=== PATIENT | female | born 1930 | race Caucasian/White ===

== ENCOUNTER 2017-07-12 05:53 | Inpatient (IN) | payer OTHER ==
--- NOTE | 2017-07-12 06:02 | PDOC ---
History of Present Illness - History of Present Illness Initial Comments: 07/12/17 06:55 87yo woman with PMH of Afib (on Coumadin), CHF, pacemaker placement, HTN, HLD, hypothyroidism who presents with shortness of breath for the past week. Patient endorses orthopnea and PND. Denies chest pain, chest pressure, or tightness. No recent illness. No sick contacts or travel. Patient is on lasix, but denies any significant increase in LE edema or calf pain. Patient ambulates with walker at baseline. Reports several episodes of black stool this morning. PCP: Dr. Samm Loo Building Architect: Dr. Cannon <Sherri Schuler - Last Filed: 07/12/17 19:43> <Jonatan Howard - Last Filed: 07/17/17 19:21> - General Stated Complaint: SOB Time Seen by Provider: 07/12/17 06:01 Past History - Past Medical History Anemia: No Asthma: No Cancer: No Cardiac Disorders: Yes (A Fib., ASHD, stent) CVA: No COPD: No CHF: Yes Dementia: No Diabetes: No Dialysis: Yes (last dialysis 2 months ago) GI Disorders: No Disorders: Yes (UTI DX 06/21, NOW ON BACTRIM DS) HTN: Yes Hypercholesterolemia: Yes Liver Disease: No Seizures: No Thyroid Disease: Yes (hypothyroidism) - Surgical History Abdominal Surgery: Yes Appendectomy: Yes Cardiac Surgery: Yes (Implanted loop recorder) Cholecystectomy: Yes Lung Surgery: No Neurologic Surgery: No Orthopedic Surgery: No - Immunization History Immunization Up to Date: Yes - Suicide/Smoking/Psychosocial Hx Smoking Status: No Smoking History: Former smoker Have you smoked in the past 12 months: No Number of Cigarettes Smoked Daily: 10 If you are a former smoker, when did you quit?: OVER 50 YRS Cigars Per Day: 0 Hx Alcohol Use: No Drug/Substance Use Hx: No Substance Use Type: None Hx Substance Use Treatment: No <Sherri Schuler - Last Filed: 07/12/17 19:43> <Jonatan Howard - Last Filed: 07/17/17 19:21> - Past Medical History Allergies/Adverse Reactions: Allergies Allergy/AdvReac Type Severity Reaction Status Date / Time No Known Drug Allergies Allergy Verified 07/12/17 06:24 Home Medications: Ambulatory Orders Acetaminophen [Tylenol] 650 mg PO PRN PRN 06/21/15 Furosemide [Lasix -] 40 mg PO DAILY 06/21/15 Isosorbide Mononitrate 15 mg PO DAILY 06/21/15 Levothyroxine [Synthroid -] 100 mcg PO DAILY 06/21/15 Losartan Potassium 25 mg PO DAILY 06/21/15 Metoprolol Tartrate 50 mg PO BID 06/21/15 Warfarin Sodium [Coumadin] 3 mg PO HS 06/21/15 Gabapentin 100 mg PO BID 07/12/17 Review of Systems - Review of Systems Respiratory: Yes: See HPI Cardiac (ROS): No: Chest Pain, Palpitations, Syncope, Chest Tightness ABD/GI: Yes: Other (black stool this AM) All Other Systems: Reviewed and Negative <Sherri Schuler - Last Filed: 07/12/17 19:43> *Physical Exam - Physical Exam General Appearance: Yes: Nourished, Appropriately Dressed HEENT: positive: Normal ENT Inspection Neck: positive: Supple Respiratory/Chest: positive: Crackles (L base crackles) Cardiovascular: positive: Regular Rhythm, Regular Rate, S1, S2 Vascular Pulses: Dorsalis-Pedis (R): 2+, Doralis-Pedis (L): 2+ Gastrointestinal/Abdominal: positive: Normal Bowel Sounds, Flat, Soft. negative : Tender, Distended, Guarding Extremity: positive: Other. negative: Pedal Edema (bilateral chronic venous stasis) Neurologic: positive: Fully Oriented, Alert, Normal Mood/Affect <Sherri Schuler - Last Filed: 07/12/17 19:43> - Vital Signs Last Vital Signs Temp Pulse Resp BP Pulse Ox 97.5 F L 81 18 147/71 100 07/17/17 14:41 07/17/17 14:41 07/17/17 14:41 07/17/17 14:41 07/17/17 09:05 <Jonatan Howard - Last Filed: 07/17/17 19:21> Heart Score/ECG Review - ECG Impressions Comment:: 07/12/17 07:04 Ventricular paced, rate 80 no ischemic changes QTc 484 <Sherri Schuler - Last Filed: 07/12/17 19:43> ED Treatment Course - LABORATORY CBC & Chemistry Diagram: 07/12/17 16:22 07/12/17 16:22 <Sherri Schuler - Last Filed: 07/12/17 19:43> - LABORATORY CBC & Chemistry Diagram: 07/16/17 07:22 07/17/17 06:00 - ADDITIONAL ORDERS Additional order review: 07/12/17 07:31 RBC 3.45 L MCV 104.8 H MCHC 32.5 RDW 13.7 MPV 7.9 D Neutrophils % 72.7 Lymphocytes % 15.4 D Monocytes % 7.7 Eosinophils % 2.9 Basophils % 1.3 - Medications Given in the ED: ED Medications Discontinued Medications Generic Name Dose Route Start Last Admin Trade Name Freq PRN Reason Stop Dose Admin Acetaminophen 650 mg 07/12/17 18:43 07/12/17 18:48 Tylenol - PO 07/12/17 18:44 650 mg ONCE ONE Administration Bisacodyl 20 mg 07/16/17 13:30 07/16/17 13:55 Dulcolax - PO 07/16/17 13:31 20 mg ONCE ONE Administration Escitalopram Oxalate 10 mg 07/12/17 11:45 07/14/17 10:38 Lexapro - PO Not Given DAILY DAVINA Furosemide 40 mg 07/12/17 11:45 07/14/17 10:37 Lasix Injection - IVPUSH 40 mg DAILY DAVINA Administration Pantoprazole Sodium 80 mg/ 100 mls @ 10 mls/hr 07/12/17 13:00 07/13/17 00:00 Sodium Chloride IVPB 10 mls/hr Q10H DAVINA Administration 8 MG/HR Sodium Chloride 1,000 mls @ 75 mls/hr 07/15/17 13:45 07/15/17 14:45 Normal Saline - IV 07/15/17 16:44 75 mls/hr ASDIR DAVINA Administration Influenza Virus Vaccine Quadrival 60 mcg 07/16/17 15:00 07/16/17 15:46 Flulaval Quad [id number] IM 07/16/17 15:01 60 mcg .ONCE ONE Administration Isosorbide Mononitrate 15 mg 07/12/17 11:45 07/13/17 09:33 Imdur - PO 15 mg DAILY DAVINA Administration Isosorbide Mononitrate 30 mg 07/13/17 18:09 07/15/17 09:36 Imdur - PO 30 mg DAILY DAVINA Administration Levothyroxine Sodium 100 mcg 07/12/17 11:45 07/14/17 10:38 Synthroid - PO 100 mcg DAILY DAVINA Administration Losartan Potassium 25 mg 07/14/17 10:00 07/15/17 09:36 Cozaar - PO 25 mg DAILY DAVINA Administration Melatonin 5 mg 07/13/17 20:03 07/13/17 21:33 Melatonin PO 07/13/17 20:04 5 mg ONCE ONE Administration Melatonin 5 mg 07/14/17 21:48 07/14/17 22:22 Melatonin PO 07/14/17 21:49 5 mg ONCE ONE Administration Melatonin 5 mg 07/15/17 19:30 07/15/17 21:32 Melatonin PO 07/15/17 19:31 5 mg ONCE ONE Administration Metoprolol Tartrate 50 mg 07/12/17 11:45 07/15/17 09:36 Lopressor - PO 50 mg BID DAVINA Administration Metoprolol Tartrate 25 mg 07/15/17 13:40 07/17/17 10:22 Lopressor - PO 25 mg BID DAVINA Administration Ondansetron HCl 4 mg 07/12/17 07:09 07/12/17 07:36 Zofran Odt - SL 07/12/17 07:10 4 mg ONCE ONE Administration Phytonadione 2.5 mg 07/12/17 12:53 07/12/17 19:22 Mephyton - PO 07/12/17 12:54 Not Given ONCE ONE Phytonadione 5 mg 07/14/17 10:45 07/14/17 11:59 Mephyton - PO 07/14/17 10:46 5 mg ONCE ONE Administration Polyethylene Glycol/Electrolytes 4,000 ml 07/16/17 18:00 07/16/17 17:11 Golytely Solution - PO 07/16/17 18:01 4,000 ml ONCE ONE Administration Potassium Chloride 40 meq 07/17/17 18:14 07/17/17 18:27 Potassium Chloride Oral Liquid PO 07/17/17 18:15 Not Given ONCE ONE Potassium Chloride 40 meq 07/17/17 18:30 07/17/17 18:45 K-Dur - PO 07/17/17 18:31 40 meq ONCE ONE Administration Sodium Bicarbonate 650 mg 07/12/17 14:00 07/14/17 14:03 Sodium Bicarbonate - PO Not Given TID [facility] Warfarin Sodium 5 mg 07/16/17 18:00 07/17/17 17:53 Coumadin - PO 5 mg DAILY@1800 [facility] Administration <Jonatan Howard - Last Filed: 07/17/17 19:21> Medical Decision Making - Medical Decision Making 07/12/17 07:05 87yo woman with PMH of Afib (on Coumadin), CHF, and biventricular pacemaker who presents with sob likely 2/2 CHF exacerbation. Also reports melena in setting of Warfarin concerning for GIB. -CBC, CMP, Trop, BNP -CXR -EKG -Guaiac 07/12/17 19:46 Case signed out in-coming resident <Sherri Schuler - Last Filed: 07/12/17 19:43> *DC/Admit/Observation/Transfer <Sherri Schuler - Last Filed: 07/12/17 19:43> <Jonatan Howard - Last Filed: 07/17/17 19:21> Diagnosis at time of Disposition: Shortness of breath, Blood in stool
--- NOTE | 2017-07-12 06:20 | PDOC ---
Attending Attestation - HPI HPI: 07/12/17 06:47 The patient is a 87 year old female with a significant past medical history of Afib (pacemaker, reportedly taking warfarin), ASHD, cardiac stent, CHF, HTN, HLD , hypothyroidism, sensory ataxia, vertigo, who presents to the ED for two weeks of shortness of breath. She reports the shortness of breath is worse when lying flat. She denies recent illnesses or sick contacts. She denies alleviation of her symptoms. Secondarily, she reports one episode of dark stool this morning. The patient denies fever, chills, diaphoresis, chest pain, palpitations, lightheadedness. The patient denies any trauma, dizziness, LOC, headache, syncope. The patient denies hematuria, frequency, or dysuria. The patient denies abdominal pain or vomiting The patient denies lower extremity edema PCP: Dr. Cannon (appointment tomorrow) - Medical Decision Making 07/12/17 06:47 Documentation prepared by Chelsea Villalpando, acting as medical numerical control operator for Jonatan Howard DO <Chelsea Villalpando - Last Filed: 07/12/17 06:48> - Resident Resident Name: Sherri Schuler - ED Attending Attestation I have performed the following: I have examined & evaluated the patient, The case was reviewed & discussed with the resident, I agree w/resident's findings & plan, Exceptions are as noted - Physicial Exam PE: 07/12/17 19:42 *Physical Exam General Appearance: Yes: Appropriately Dressed. No: Apparent Distress, Intoxicated HEENT: positive: EOMI, AMANDA, Normal ENT Inspection, Normal Voice, TMs Normal, Pharynx Normal. negative: Pale Conjunctivae, Photophobia, Scleral Icterus (R), Scleral Icterus (L) Neck: positive: Trachea midline, Normal Thyroid, Supple. negative: Tender, Rigid, Carotid bruit, Stridor, Lymphadenopathy (R), Lymphadenopathy (L), Thyromegaly Respiratory/Chest: positive: Lungs Clear, Normal Breath Sounds. negative: Chest Tender, Respiratory Distress, Accessory Muscle Use, Labored Respiration, RES, Crackles, Rales, Rhonchi, Stridor, Wheezing, Dullness Cardiovascular: positive: Regular Rhythm, Regular Rate, S1, S2. negative: Edema , JVD, Murmur, Bradycardia, Tachycardia Vascular Pulses: Dorsalis-Pedis (R): 2+, Doralis-Pedis (L): 2+ Gastrointestinal/Abdominal: positive: Normal Bowel Sounds, Flat, Soft. negative : Tender, Organomegaly, Pulsatile Mass, Increased Bowel Sounds, Decreased BS, Distended, Guarding, Rebound, Hernia, Hepatomegaly, Spleenomegaly Lymphatic: negative: Adenopathy, Tenderness Musculoskeletal: positive: Normal Inspection. negative: CVA Tenderness, Decreased Range of Motion Extremity: positive: Normal Capillary Refill, Normal Inspection, Normal Range of Motion, Pelvis Stable. negative: Tender, Pedal Edema, Swelling, Erythema Integumentary: positive: Normal Color, Dry, Warm. negative: Cyanotic, Erythema , Jaundice, Rash Neurologic: positive: wood and hardware outfitter II-XII NML intact, Fully Oriented, Alert, Normal Mood/ Affect, Motor Strength 5/5. negative: EOM Palsy, Facial Droop, Sensory Deficit <Jonatan Howard - Last Filed: 07/12/17 19:42>
[2017-07-12] MEDS ORDERED: ONDANSETRON *ODT* 4 MG TABLET SL ONE (07:09)
[2017-07-12] MEDS ORDERED: ONDANSETRON *ODT* 4 MG TABLET ONE (07:27)
--- NOTE | 2017-07-12 07:31 | PDOC ---
*Physical Exam - Vital Signs Last Vital Signs Temp Pulse Resp BP Pulse Ox 97.9 F 82 20 165/90 99 07/12/17 06:25 07/12/17 06:25 07/12/17 06:25 07/12/17 06:25 07/12/17 06:25 ED Treatment Course - LABORATORY CBC & Chemistry Diagram: 07/12/17 07:31 07/12/17 07:31 Medical Decision Making - Medical Decision Making 07/12/17 07:31 Care taken over from Dr. Schuler. 07/12/17 07:32 Ms. Guzman is an 87 yo woman w/ pmh of afib (on coumadin) with pacemaker, CHF, HTN, HLD, hypothyroidism presenting w/ SOB for 1 week and also complaining of 1 episode of black stool this AM. She currently sees Dr. Cannon for Cardiology. Home meds as of 2 years ago (last known list). Acetaminophen [Tylenol] 650 mg PO PRN 06/21/15 Escitalopram Oxalate [Lexapro -] 10 mg PO DAILY 06/21/15 Furosemide [Lasix -] 40 mg PO ASDIR 06/21/15 Isosorbide Mononitrate 15 mg PO DAILY 06/21/15 Levothyroxine [Synthroid -] 100 mcg PO DAILY 06/21/15 Losartan Potassium 25 mg PO DAILY 06/21/15 Metoprolol Tartrate 50 mg PO BID 06/21/15 Sodium Bicarbonate 650 mg PO TID 06/21/15 Sulfamethoxazole/Trimethoprim [Bactrim Ds -] 1 tab PO BID #28 tablet 06/21/15 Warfarin Sodium [Coumadin] 3 mg PO HS 06/21/15 Zolpidem Tartrate [Ambien] 5 mg PO HS 06/21/15 07/12/17 09:03 Discussed patient with PCP, would like admitted to hospitalist as unsure of date of last cardiac workup and given blood in stool w/ SOB symptoms. 07/12/17 09:36 INR noted to be 6.02. 07/12/17 09:48 Discussed patient with Warehouse Shipping Receiving Clerk (Dr. Cannon) - agrees with admit and will see patient in hospital later today. 07/12/17 10:32 Patient will be admitted under hospitalist. *DC/Admit/Observation/Transfer Diagnosis at time of Disposition: Shortness of breath, Blood in stool - Discharge Dispostion Admit: Yes - Referrals Referrals: Adriana Johnson MD [Primary Care Provider] - - Patient Instructions - Post Discharge Activity
[2017-07-12 07:43] LABS: BASO % 1.3 % (0-2.0); EOS % 2.9 % (0-4.5); HEMATOCRIT 36.1 % (32.4-45.2); HEMOGLOBIN 11.7 GM/dL (10.7-15.3); LYMPH % 15.4 % (8-40); MCH 34.1 pg (25.7-33.7); MCHC 32.5 g/dl (32.0-36.0); MEAN CELL VOLUME 104.8 fl (80-96); MEAN PLT VOLUME 7.9 fl (7.5-11.1); MONO % 7.7 % (3.8-10.2); NEUT % 72.7 % (42.8-82.8); PLATELET COUNT 196 K/MM3 (134-434); RBC 3.45 M/mm3 (3.60-5.2); RDW 13.7 % (11.6-15.6); WHITE BLOOD COUNT 7.9 K/mm3 (4.0-10.0)
[2017-07-12 08:14] LABS: ALBUMIN 3.5 g/dl (3.4-5.0); ANION GAP 10 (8-16); BILIRUBIN,TOTAL 0.7 mg/dL (0.2-1.0); BLOOD UREA NITROGEN 73 mg/dL (7-18); CALCIUM 8.1 mg/dL (8.5-10.1); CHLORIDE 111 mmol/L (98-107); CO2 21 mmol/L (21-32); CREATININE 2.1 mg/dL (0.55-1.02); GLUCOSE,RANDOM 96 mg/dL (74-106); SGPT/ALT 19 U/L (12-78); SODIUM 142 mmol/L (136-145); TOT PROT 6.5 g/dl (6.4-8.2)
[2017-07-12 08:16] LABS: ALK PHOS 87 U/L (45-117)
[2017-07-12 08:22] LABS: POTASSIUM 5.2 mmol/L (3.5-5.1); SGOT/AST 30 U/L (15-37)
[2017-07-12 09:32] LABS: INR 6.02 (0.82-1.09)
--- NOTE | 2017-07-12 11:27 | HP ---
CC: Can't breathe PCP: Dr. Johnson; Cardiology: Dr. Jang or Dr. Ramirez HPI: 87 yo F w/ persistent A-fib on coumadin, hypothyroidism, angina and CAD s/ p PCI and stent, combined CHF s/p biventricular pacemaker (last interrogated 2 weeks ago), HLD, HTN, asthma, ESRD previously on HD brought in by her son due to worsening shortness of breath since last night. The symptom came on last night when patient was in bed around 8pm when she suddenly felt short of breath. She lives on second floor with ~12 steps of stairs and she uses wheelchair and walker to ambulate outside and inside of her house respectively. Patient endorses dyspnea on exertion at baseline but the symptom has been more acute and worse in that she now has to use 2 instead of 1 pillow to sleep at night and wake up gasping for air more frequently in the last few days. She also noted worsening appetite and 3 episodes of dark stool while on her usual coumadin 3mg Mon-Fri, 1.5mg on Sat, and nothing on Sun. She denies chest pain, palpitation, fever, chills, n/v, weight gain, urinary symptom. PMH: As above PSH: Appendectomy, AV Fistula/Graft, Cholecystectomy, Hysterectomy, Stent, Tonsillectomy Social History: Lives with her son. Former smoker, denies alcohol and drug use Family History: non-contributory Allergy: NKDA Home Meds: Acetaminophen [Tylenol] 650 mg PO PRN 06/21/15 Escitalopram Oxalate [Lexapro -] 10 mg PO DAILY 06/21/15 Furosemide [Lasix -] 40 mg PO DAILY 06/21/15 Isosorbide Mononitrate 15 mg PO DAILY 06/21/15 Levothyroxine [Synthroid -] 100 mcg PO DAILY 06/21/15 Losartan Potassium 25 mg PO DAILY 06/21/15 Metoprolol Tartrate 50 mg PO BID 06/21/15 Sodium Bicarbonate 650 mg PO TID 06/21/15 Warfarin Sodium [Coumadin] 3 mg PO HS 06/21/15 ROS: Constitutional: no fever or chills, +loss of appetite, no weakness or weight change HEENT: No headache, nasal congestion, sore throat, ear pain, vision change Skin: shingle rash on R posterior back Cardiovascular: No chest pain, palpitation Pulmonary: No cough (dry or productive), colored sputum Endocrine: No polyuria, polydipsia, skin /hair changes, heat/cold intolerance. GI: No active abd pain, nausea or vomiting : No frequency, urgency, dysuria, or hematuria. MSK: No joint or muscle pain Psychology: No depression, anxiety, or insomnia. Physical Examination Vital Signs Period Temp Pulse Resp BP Sys/Maciel Pulse Ox Last 24 Hr 97.9 F 82 20 165/90 99 General: Patient sitting up in bed, on NC 2L, in no obvious discomfort or distress, AAO x 3. hard at hearing, able to speak full sentences, appropriate to stated age. Eyes: PERRLA ENT: Oropharynx clear with no lesions/erythema. Neck: Supple with no LAD or masses, +JVD. Lymph Nodes: No cervical or inguinal LAD. Cardiovascular: Irregularly irregular, S1 and S2 normal, no m/g/r. Lungs: Good air entry, crackles in bilateral bases Abdomen: Normoactive bowel sounds. Non-distended, No tenderness even upon deep palpation, no guarding/rebound, +hepatojugular reflux Extremeties: No peripheral edema, chronic venous stasis change, scatter small bruises in lower extremities, +2 peripheral pulses Rectal: normal sphincter tone, no tenderness, mass, hard stool felt, no visible blood Imaging: EKG on 07/12: ventricular paced, biventricular pacemaker, 80 bpm CXR on 07/12: no acute finding A/P: 87 yo F admitted to telemetry inpatient service for supratherapeutic INR on coumadin and suspected acute decompensation of combined heart failure. UGIB, in the setting of Supratherapeutic INR - +ve occult blood but stable H&H * f/u repeat CBC - IV access and start protonix gtt - Hold off Vitamin K for now - Hold coumadin and trend INR - GI consult Acute decompensation of combined CHF - Clinically fluid overloaded and elevated BNP - Lasix IV 40mg daily - Daily weight and strict I/O - Bed elevated 30-45 - Supplemental O2 to maintain >92% - Repeat ECHO - Cardiology onboard HTN - Cont. isosorbide mononitrate, metoprolol - Hold losartan considering hyperkalemia and potentially worsening Cr on lasix Hyperkalemia, mild - Cont. to monitor K+, f/u serial BMP - Hold losartan, resume tomorrow ESRD - Cr at baseline, not on HD - Cont. to monitor Cr while on daily lasix Hypothyroidism - f/u TSH - Cont. synthroid Anxiety disorder - Cont. lexapro FEN - Avoid fluid - Mild hyperkalemia, cont. to monitor - Na+ restrict diet Prophylaxis - DVT: SCDs - GI: not indicated Dispo - Cont. to monitor on telemetry - Anticipate 2-3 d of hospitalization, discharge to home Ace [facility] Medicine PGY2 Pager: [phone] Visit type - Emergency Visit Emergency Visit: Yes ED Registration Date: 07/12/17 Care time: The patient presented to the Emergency Department on the above date and was hospitalized for further evaluation of their emergent condition. - New Patient This patient is new to me today: Yes Date on this admission: 07/12/17 - Critical Care Critical Care patient: No
[2017-07-12 11:35] LABS: N-TERMINAL BNP 32030.34 pg/ml (5-450)
[2017-07-12] MEDS ORDERED: LOSARTAN POTASSIUM 25 MG TABLET PO SCH (11:45)
[2017-07-12] MEDS ORDERED: LEVOTHYROXINE NA 25 MCG TABLET (FP) ONE (12:03)
[2017-07-12] MEDS: METOPROLOL TARTRATE 50 MG TABLET (FP) PO SCH ×2 (12:07→22:50)
[2017-07-12] MEDS: LEVOTHYROXINE NA 100 MCG TABLET (FP) PO SCH (12:07)
[2017-07-12] MEDS: ESCITALOPRAM OXALATE 10 MG TABLET (FP) PO SCH (12:07)
[2017-07-12] MEDS: FUROSEMIDE 40 MG/4 ML INJECTABLE VIAL IVPUSH SCH (12:14)
[2017-07-12] MEDS ORDERED: PHYTONADIONE 5 MG TABLET PO ONE (12:53)
[2017-07-12] MEDS: ISOSORBIDE MONONITRATE 30 MG TAB.SR.24H (FP) PO SCH (12:59)
--- NOTE | 2017-07-12 13:05 | PN ---
Teaching Attending Note Name of Resident: Ace Samuel ATTENDING PHYSICIAN STATEMENT I saw and evaluated the patient. I reviewed the resident's note and discussed the case with the resident. I agree with the resident's findings and plan as documented. SUBJECTIVE: CC: SOB and melena HPI: 87 y/o lady with h/o CHF, HTN, CAD, PCI, s/p Pacemaker , A fib, DM, hypothyroidism, CKD on HD previously and ther medical problems who presented with SOB and melena. she has not been giancarlo to sleep at night x 2 weeks, but in past 2 days she developed orthopnea , but no OSB at rest. She denies CP or papitations , or fever/chills, cough. she walks using a walker at home . She takes coumadin at home and yesterday she had 3 lack BMs . she denies any h/o GI bleed. her pacemaker was interrogated 2 weeks ago, and she was supposed to see Binh estrada in office today . OBJECTIVE: NAD, awake , alert and oriented x3. tachypnic HEENT: JVD, MMM, no facia droop, EOMI, round equla reactive pupils. CV: RRR, 3/6/ SM at LLSB and apex . JVD Lungs: bibasiar crackles , no wheezing Abd: soft, Nt, ND , NL BS Ext: 1+ edema , chronic hyperpugmentation of skin on egs . DP 2+ b/l Neuro : no facia droop, EOMI, round equla reactive pupils. tongue at mid line . strenght 4/5 shoulder abduction b/l. 5/5 in bicpes and triceps . 5/5 in LE proximally and distally. Rectal: Nl hair distribution , no internal or external hemorrhoids. black stool on examiner 's finger , guaiac + ASSESSMENT AND PLAN: 87 y/o lady with h/o CHF, HTN, CAD, PCI, s/p Pacemaker , A fib, DM, hypothyroidism, CKD on HD previously and ther medical problems who presented with SOB and melena. 1- Acute on chronic Systolic heart failure . signs of volume overload. takes lasix QOd instead of daily. last echo in 2014 with severely reduced EF. - lasix IV 40 mg daily - weight and I&O - check echo - tele monitoring - cont BB, and imdur . hold ARB due to her hyperkalemia -card consult 2- Melena: likely due to Upper GI bleed in setting of coumadin coagulopathy. - start protonix gtt - repeat H&H now and q 8 hr - Hold coumadin. if Hb drops on repeat labs , will reverse with Vit K 2.5 - GI consult 3- H/O A fib: has paced rhythm on EKG today - cont BB - hold coumadin as above , and reverse if Hb drops 4-Mild hyperkalemia: - No EKG changes. - hold ARB, might resume tomorrow if K nl and BP tolerates. - repeat K 5- HTN: did not receive any of her meds yet. - will prescribe. - monitor of ARB as above 6- Swallow eval. as she choked on her pills . HLOC
[2017-07-12] MEDS: PANTOPRAZOLE SODIUM 80 MG in SODIUM CHLORIDE 100 ML IVPB SCH (15:14)
[2017-07-12] MEDS: SODIUM BICARBONATE 650 MG TABLET PO SCH ×2 (15:24→22:50)
--- NOTE | 2017-07-12 16:39 | CON.GI ---
Consult Consult Specialty:: GI - History of Present Illness History of Present Illness: A 87 yof admitted via ED for CHF exacerbation and supratheraputic INR. Hemoccult positive. No melena, hematochezia, hematermesis. Some nausea, but no vomiting. No abdominal pain, dysphagia, odynophagaia, GERD. Pt's daughter at bedside. - Past Medical History Cardio/Vascular: Yes: AFIB, CAD (PCI), HTN, Hyperlipdemia, Other (Post REVEAL, implatable loop recorder) Pulmonary: Yes: Asthma Renal/: Yes: Renal Failure (ESRD on HD) ...LMP: 09/10/14 Psych: Yes: Anxiety Endocrine: Yes: Hypothyroidism - Past Surgical History Past Surgical History: Yes: Appendectomy, AV Fistula/Graft (done 4-5 yrs ago, now ligated and off HD), Cholecystectomy, Hysterectomy, Stent, Tonsillectomy - Alcohol/Substance Use Hx Alcohol Use: No - Smoking History Smoking history: Former smoker Have you smoked in the past 12 months: No Aproximately how many cigarettes per day: 10 If you are a former smoker, when did you quit?: OVER 50 YRS - Social History Usual Living Arrangement: With Child ADL: Independent History of Recent Travel: No Home Medications - Allergies Allergies/Adverse Reactions: Allergies Allergy/AdvReac Type Severity Reaction Status Date / Time No Known Drug Allergies Allergy Verified 07/12/17 06:24 - Home Medications Home Medications: Ambulatory Orders Acetaminophen [Tylenol] 650 mg PO PRN 06/21/15 Escitalopram Oxalate [Lexapro -] 10 mg PO DAILY 06/21/15 Furosemide [Lasix -] 40 mg PO DAILY 06/21/15 Isosorbide Mononitrate 15 mg PO DAILY 06/21/15 Levothyroxine [Synthroid -] 100 mcg PO DAILY 06/21/15 Losartan Potassium 25 mg PO DAILY 06/21/15 Metoprolol Tartrate 50 mg PO BID 06/21/15 Sodium Bicarbonate 650 mg PO TID 06/21/15 Warfarin Sodium [Coumadin] 5 mg PO HS 06/21/15 Gabapentin 100 mg PO BID 07/12/17 Family Disease History - Family Disease History Family History: Unremarkable (on-contributing) Review of Systems Findings/Remarks: please refer to H&P and ED records Physical Exam-GI Vital Signs: Vital Signs Temperature 97.9 F 07/12/17 06:25 Pulse Rate 77 07/12/17 14:37 Respiratory Rate 20 07/12/17 14:37 Blood Pressure 153/76 07/12/17 14:37 O2 Sat by Pulse Oximetry (%) 100 07/12/17 14:37 Constitutional: Yes: No Distress, Calm Eyes: Yes: Conjunctiva Clear HENT: Yes: Atraumatic Neck: Yes: Supple Cardiovascular: Yes: Regular Rate and Rhythm Respiratory: Yes: Regular Labs: CBC, BMP 07/12/17 07:31 07/12/17 07:31 INR, PTT INR 6.02 (0.82-1.09) H* D 07/12/17 08:12 Laboratory Results - last 24 hr 07/12/17 07/12/17 07/12/17 07:20 07:31 07:31 WBC 7.9 RBC 3.45 L Hgb 11.7 Hct 36.1 MCV 104.8 H MCH 34.1 H MCHC 32.5 RDW 13.7 Plt Count 196 MPV 7.9 D Neutrophils % 72.7 Lymphocytes % 15.4 D Monocytes % 7.7 Eosinophils % 2.9 Basophils % 1.3 PT with INR INR PTT (Actin FS) Sodium 142 Potassium 5.2 H Chloride 111 H D Carbon Dioxide 21 D Anion Gap 10 BUN 73 H Creatinine 2.1 H Creat Clearance w eGFR 22.18 Random Glucose 96 Calcium 8.1 L Total Bilirubin 0.7 AST 30 D ALT 19 Alkaline Phosphatase 87 D Creatine Kinase 85 Troponin I 0.05 B-Natriuretic Peptide 03783.34 H Total Protein 6.5 Albumin 3.5 Stool Occult Blood Positive 07/12/17 07/12/17 07:31 08:12 WBC RBC Hgb Hct MCV MCH MCHC RDW Plt Count MPV Neutrophils % Lymphocytes % Monocytes % Eosinophils % Basophils % PT with INR 68.00 H INR 6.02 H* D PTT (Actin FS) 60.0 H Sodium Potassium Chloride Carbon Dioxide Anion Gap BUN Creatinine Creat Clearance w eGFR Random Glucose Calcium Total Bilirubin AST ALT Alkaline Phosphatase Creatine Kinase Troponin I B-Natriuretic Peptide Cancelled Total Protein Albumin Stool Occult Blood Problem List - Problems (1) CHF (congestive heart failure) Code(s): I50.9 - HEART FAILURE, UNSPECIFIED Qualifiers: Congestive heart failure type: combined Congestive heart failure chronicity : acute on chronic Qualified Code(s): I50.43 - Acute on chronic combined systolic (congestive) and diastolic (congestive) heart failure (2) Heme positive stool Code(s): R19.5 - OTHER FECAL ABNORMALITIES (3) Supratherapeutic INR Code(s): R79.1 - ABNORMAL COAGULATION PROFILE Assessment/Plan An 87 yof with supratheraputic INR and normal Hgb. No external signs of recent, or ongoing significant GI bleeding. Hemocult positive stools. Correct INR CHF exacerbation management Consider PPI po daily repeat Hgb in AM No need for urgent GI intervention at this time. Discussed with the patient and her daughter Will follow and monitor
[2017-07-12 17:02] LABS: HEMATOCRIT 35.2 % (32.4-45.2); HEMOGLOBIN 11.7 GM/dL (10.7-15.3); MCH 35.1 pg (25.7-33.7); MCHC 33.2 g/dl (32.0-36.0); MEAN CELL VOLUME 105.8 fl (80-96); MEAN PLT VOLUME 8.4 fl (7.5-11.1); PLATELET COUNT 204 K/MM3 (134-434); RBC 3.33 M/mm3 (3.60-5.2); RDW 13.7 % (11.6-15.6); WHITE BLOOD COUNT 8.6 K/mm3 (4.0-10.0)
[2017-07-12 17:13] LABS: ADD RBC MORPHOLOGY YES
[2017-07-12 17:57] LABS: ANION GAP 9 (8-16); BLOOD UREA NITROGEN 80 mg/dL (7-18); CALCIUM 8.5 mg/dL (8.5-10.1); CHLORIDE 108 mmol/L (98-107); CO2 24 mmol/L (21-32); CREATININE 2.2 mg/dL (0.55-1.02); GLUCOSE,RANDOM 100 mg/dL (74-106); POTASSIUM 4.7 mmol/L (3.5-5.1); SODIUM 141 mmol/L (136-145)
[2017-07-12] MEDS ORDERED: ACETAMINOPHEN 325 MG TABLET (FP) PO ONE (18:43)
[2017-07-12] MEDS ORDERED: ACETAMINOPHEN 325 MG TABLET (FP) ONE (18:46)
[2017-07-12 19:16] LABS: MACROCYTOSIS 2+
[2017-07-12 22:15] LABS: HEMOGLOBIN 10.9 GM/dL (10.7-15.3); MCH 34.9 pg (25.7-33.7); MEAN CELL VOLUME 105.7 fl (80-96); MEAN PLT VOLUME 8.6 fl (7.5-11.1); PLATELET COUNT 209 K/MM3 (134-434); RBC 3.12 M/mm3 (3.60-5.2); RDW 13.7 % (11.6-15.6); WHITE BLOOD COUNT 7.5 K/mm3 (4.0-10.0)
[2017-07-12 23:28] VITALS: BMI 22.6
[2017-07-13] MEDS: PANTOPRAZOLE SODIUM 80 MG in SODIUM CHLORIDE 100 ML IVPB SCH
[2017-07-13] MEDS: SODIUM BICARBONATE 650 MG TABLET PO SCH ×3 (06:38→21:08)
[2017-07-13 08:15] LABS: HEMATOCRIT 34.8 % (32.4-45.2); HEMOGLOBIN 11.2 GM/dL (10.7-15.3); MCH 34.2 pg (25.7-33.7); MCHC 32.1 g/dl (32.0-36.0); MEAN CELL VOLUME 106.6 fl (80-96); MEAN PLT VOLUME 8.4 fl (7.5-11.1); PLATELET COUNT 205 K/MM3 (134-434); RBC 3.27 M/mm3 (3.60-5.2); RDW 13.7 % (11.6-15.6); WHITE BLOOD COUNT 7.1 K/mm3 (4.0-10.0)
[2017-07-13 08:23] LABS: PROTHROMBIN TIME (PATIENT) 89.1 SEC (9.98-11.88)
[2017-07-13 08:30] LABS: INR 7.88 (0.82-1.09)
[2017-07-13 08:34] LABS: ANION GAP 12 (8-16); BLOOD UREA NITROGEN 86 mg/dL (7-18); CALCIUM 8.6 mg/dL (8.5-10.1); CHLORIDE 110 mmol/L (98-107); CO2 22 mmol/L (21-32); CREATININE 2.3 mg/dL (0.55-1.02); GLUCOSE,RANDOM 65 mg/dL (74-106); MAGNESIUM 2.2 mg/dL (1.8-2.4); PHOSPHOROUS 5.4 mg/dL (2.5-4.9); POTASSIUM 4.7 mmol/L (3.5-5.1); SODIUM 144 mmol/L (136-145)
--- NOTE | 2017-07-13 08:39 | PN ---
Physical Exam: SUBJECTIVE: Patient seen and examined by me this AM - No major overnight events, vitals stable overnight. On PPI gtt. Pt denies any pain, slept well. No further episodes of SOB. Denies any fevers/chills, cough, CP, abdominal pain, N/V, rashes. Has had no bowel movements since admission. OBJECTIVE: Vital Signs Intake & Output 07/10/17 07/11/17 07/12/17 07/13/17 23:59 23:59 23:59 23:59 Intake Total 90 100 Balance 90 100 Weight 50.984 kg Period Temp Pulse Resp BP Sys/Maciel Pulse Ox Last 24 Hr 97.3 F-98.0 F 72-81 18-20 113-153/59-76 96-100 GENERAL: Pt a&ox3, laying in bed. Chinese speaking HEAD: NCAT EYES: PERRL, extraocular movements intact, sclera anicteric, conjunctiva clear. No ptosis. ENT: Ears normal, nares patent, oropharynx clear without exudates, moist mucous membranes. NECK: + JVD, trachea midline, full range of motion, supple. LUNGS: Decreased breath sounds at bases, no wheezes, no crackles, no accessory muscle use. HEART: RRR, 2/6 systolic murmur at RUSB, S2, rub or gallop. ABDOMEN: Soft, nontender, nondistended, normoactive bowel sounds, no guarding, no rebound, no hepatosplenomegaly, no masses. Upper EXTREMITIES: 2+ pulses, warm, well-perfused. BL ecchymoses. 1+ edema BL. 2 sub-cm healed necrotic ulcers in L forearm. Lower EXTREMITIES: L leg in external case, midline TKR scar. 2+ DP/PT pulses, wwp, 1+ pitting edema BL. NEUROLOGICAL: Cranial nerves II through XII grossly intact. Decreased strength in L shoulder elevation. 5/5 strength in all extremities grossly. Preserved sensation to light touch in all extremities. Normal speech, gait not observed. PSYCH: Normal mood, normal affect. Laboratory Results - last 24 hr CBC, BMP 07/13/17 06:30 07/13/17 06:30 07/13/17 06:30 07/12/17 07/12/17 07/12/17 07:31 07:31 08:12 WBC RBC Hgb Hct MCV MCH MCHC RDW Plt Count MPV Manual Slide Review Platelet Comment Macrocytosis PT with INR 68.00 H INR 6.02 H* D PTT (Actin FS) 60.0 H Sodium 142 Potassium 5.2 H Chloride 111 H D Carbon Dioxide 21 D Anion Gap 10 BUN 73 H Creatinine 2.1 H Creat Clearance w eGFR 22.18 Random Glucose 96 Calcium 8.1 L Total Bilirubin 0.7 AST 30 D ALT 19 Alkaline Phosphatase 87 D Creatine Kinase 85 Troponin I 0.05 B-Natriuretic Peptide 44677.34 H Cancelled Total Protein 6.5 Albumin 3.5 07/12/17 07/12/17 07/12/17 16:22 16:22 21:30 WBC 8.6 RBC 3.33 L Hgb 11.7 Hct 35.2 MCV 105.8 H MCH 35.1 H MCHC 33.2 RDW 13.7 Plt Count 204 MPV 8.4 Manual Slide Review Slide scanned. Platelet Comment Adequate, few giant Macrocytosis 2+ PT with INR INR PTT (Actin FS) Sodium 141 Potassium 4.7 4.7 Chloride 108 H Carbon Dioxide 24 Anion Gap 9 BUN 80 H Creatinine 2.2 H Creat Clearance w eGFR Random Glucose 100 Calcium 8.5 Total Bilirubin AST ALT Alkaline Phosphatase Creatine Kinase Troponin I 0.06 H B-Natriuretic Peptide Total Protein Albumin 07/12/17 07/12/17 07/13/17 21:30 21:45 03:50 WBC 7.5 RBC 3.12 L Hgb 10.9 Hct 33.0 MCV 105.7 H MCH 34.9 H MCHC 33.0 RDW 13.7 Plt Count 209 MPV 8.6 Manual Slide Review Platelet Comment Macrocytosis PT with INR INR PTT (Actin FS) Sodium Potassium Chloride Carbon Dioxide Anion Gap BUN Creatinine Creat Clearance w eGFR Random Glucose Calcium Total Bilirubin AST ALT Alkaline Phosphatase Creatine Kinase Troponin I 0.07 H 0.06 H B-Natriuretic Peptide Total Protein Albumin 07/13/17 07/13/17 06:30 06:30 WBC 7.1 RBC 3.27 L Hgb 11.2 Hct 34.8 MCV 106.6 H MCH 34.2 H MCHC 32.1 RDW 13.7 Plt Count 205 MPV 8.4 Manual Slide Review Platelet Comment Macrocytosis PT with INR 89.10 H INR 7.88 H* D PTT (Actin FS) Sodium Potassium Chloride Carbon Dioxide Anion Gap BUN Creatinine Creat Clearance w eGFR Random Glucose Calcium Total Bilirubin AST ALT Alkaline Phosphatase Creatine Kinase Troponin I B-Natriuretic Peptide Total Protein Albumin Active Medications Generic Name Dose Route Start Last Admin Trade Name Alecia PRN Reason Stop Dose Admin Escitalopram Oxalate 10 mg 07/12/17 11:45 07/12/17 12:07 Lexapro - PO 10 mg DAILY DAVINA Administration Furosemide 40 mg 07/12/17 11:45 07/12/17 12:14 Lasix Injection - IVPUSH 40 mg DAILY DAVINA Administration Isosorbide Mononitrate 15 mg 07/12/17 11:45 07/12/17 12:59 Imdur - PO Not Given DAILY DAVINA Levothyroxine Sodium 100 mcg 07/12/17 11:45 07/12/17 12:07 Synthroid - PO 100 mcg DAILY DAVINA Administration Metoprolol Tartrate 50 mg 07/12/17 11:45 07/12/17 22:50 Lopressor - PO 50 mg BID DAVINA Administration Pantoprazole Sodium 40 mg 07/13/17 10:00 Protonix - PO BID DAVINA Sodium Bicarbonate 650 mg 07/12/17 14:00 07/13/17 06:38 Sodium Bicarbonate - PO Not Given TID DAVINA CXR: 07/12 - No evidence of pneumonia, atelectasis, CHF. No pleural effusion, or pneumothorax is seen. ECHO 07/12 - Moderate hypokinesis of LV. PPM in R atrium and ventricle. Mild MR. Moderate TR. RV pressures 50-60. Mild . mildAR. EF 39% ASSESSMENT/PLAN: 87 yo woman w/ pmh of Afib (on coumadin), CHF, hypothyroidism, ESRD and CAD (PCI , prior stenting) who presented with SOB of 1 day duration, now found with acute on chronic CHF and GI bleedm in setting of supratherapeutic INR (6.02). #Acute on chronic CHF - Echo w/ moderate hypokinesis of LV. PPM - Cardiology consulted. Recs appreciated - Lasix 40mg IV qd - Strict Is and Os, daily weights - Imdur 30mg PO - Lopressor 50mg po BID - Tele monitoring - Losartan starting tomorrow #Suspect UGI bleed/melena - Hgb stable 11.7 -> 11.2, no evidence of active bleeding currently - Trend H/H - PPI gtt dc/ed. Protonix 40mg PO BID - Monitor for melena, hematochezia - GI consulted. Recs appreciated. - Per GI, medical management, monitor for signs of bleeding, trend Hgb #Afib - Rate well controlled during admission - Rate control w/ BB - Continue to hold coumadin as INR supratherapeutic - Repeat INR 6.02 -> 7.88. F/u AM INR - If INR continues uptrending or signs of shilo bleeding, FFP + Vitamin K #Hyperkalemia - K 4.7 today. - Daily BMPs. Trend K. #Hypothyroidism - TSH 0.69 - Continue home synthroid #HTN - 110-160s systolic during stay - Restart Losartan tomorrow - Monitor BP #Depression - Continue home Lexapro 10mg PO FEN: F: PO hydration E: Daily BMPs, monitor K N: Cardiac diet #PPX INR supratherapeutic, coumadin once normalized INR PPI Plan discussed with attending, Dr. Isaiah Victoria, PGY1 Visit type - Emergency Visit Emergency Visit: Yes ED Registration Date: 07/12/17 Care time: The patient presented to the Emergency Department on the above date and was hospitalized for further evaluation of their emergent condition. - New Patient This patient is new to me today: Yes Date on this admission: 07/13/17 - Critical Care Critical Care patient: No
--- NOTE | 2017-07-13 09:17 | EKG ---
Test Reason : Blood Pressure : / mmHG Vent. Rate : 080 BPM Atrial Rate : 076 BPM P-R Int : 000 ms QRS Dur : 130 ms QT Int : 420 ms P-R-T Axes : 000 257 042 degrees QTc Int : 484 ms Ventricular-paced rhythm Biventricular pacemaker detected underlying rhythm is atrial fibrillation Confirmed by STEPHEN HARRISON MD ([id number]) on 07/13/2017 9:16:51 AM Referred By: Confirmed By:STEPHEN HARRISON MD
[2017-07-13] MEDS: ISOSORBIDE MONONITRATE 30 MG TAB.SR.24H (FP) PO SCH (09:33)
[2017-07-13] MEDS: PANTOPRAZOLE 40 MG TABLET (FP) PO SCH ×2 (09:34→21:07)
[2017-07-13] MEDS: LEVOTHYROXINE NA 100 MCG TABLET (FP) PO SCH (09:34)
[2017-07-13] MEDS: FUROSEMIDE 40 MG/4 ML INJECTABLE VIAL IVPUSH SCH (09:34)
[2017-07-13] MEDS: METOPROLOL TARTRATE 50 MG TABLET (FP) PO SCH ×2 (09:34→21:07)
[2017-07-13] MEDS: ESCITALOPRAM OXALATE 10 MG TABLET (FP) PO SCH (09:34)
--- NOTE | 2017-07-13 09:46 | PN ---
Progress Note, Physician History of Present Illness: No events overnight. comfortable. INR 7.8, Hb 11.2 g/dl - Current Medication List Current Medications: Active Medications Escitalopram Oxalate (Lexapro -) 10 mg PO DAILY [facility] Last Admin: 07/13/17 09:34 Dose: Not Given Furosemide (Lasix Injection -) 40 mg IVPUSH DAILY [facility] Last Admin: 07/13/17 09:34 Dose: 40 mg Isosorbide Mononitrate (Imdur -) 15 mg PO DAILY [facility] Last Admin: 07/13/17 09:33 Dose: 15 mg Levothyroxine Sodium (Synthroid -) 100 mcg PO DAILY [facility] Last Admin: 07/13/17 09:34 Dose: 100 mcg Metoprolol Tartrate (Lopressor -) 50 mg PO BID [facility] Last Admin: 07/13/17 09:34 Dose: 50 mg Pantoprazole Sodium (Protonix -) 40 mg PO BID [facility] Last Admin: 07/13/17 09:34 Dose: 40 mg Sodium Bicarbonate (Sodium Bicarbonate -) 650 mg PO TID [facility] Last Admin: 07/13/17 06:38 Dose: Not Given - Objective Vital Signs: Vital Signs Temperature 97.3 F L 07/13/17 08:00 Pulse Rate 79 07/13/17 08:00 Respiratory Rate 18 07/13/17 08:00 Blood Pressure 158/71 07/13/17 08:00 O2 Sat by Pulse Oximetry (%) 98 07/13/17 08:00 Constitutional: Yes: Well Nourished, No Distress, Calm Eyes: Yes: Conjunctiva Clear HENT: Yes: Atraumatic Neck: Yes: Supple Respiratory: Yes: Regular Gastrointestinal: Yes: Soft. No: Rectal Bleeding, Tenderness, Vomiting Neurological: Yes: Alert, Oriented Psychiatric: Yes: Alert Labs: CBC, BMP 07/13/17 06:30 07/13/17 06:30 INR, PTT INR 7.88 (0.82-1.09) H* D 07/13/17 06:30 Laboratory Results - last 24 hr 07/12/17 07/12/17 07/12/17 07:31 08:12 16:22 WBC RBC Hgb Hct MCV MCH MCHC RDW Plt Count MPV Manual Slide Review Platelet Comment Macrocytosis PT with INR INR PTT (Actin FS) 60.0 H Sodium 141 Potassium 4.7 Chloride 108 H Carbon Dioxide 24 Anion Gap 9 BUN 80 H Creatinine 2.2 H Random Glucose 100 Calcium 8.5 Phosphorus Magnesium Troponin I 0.06 H B-Natriuretic Peptide 13862.34 H TSH 07/12/17 07/12/17 07/12/17 16:22 21:30 21:30 WBC 8.6 RBC 3.33 L Hgb 11.7 Hct 35.2 MCV 105.8 H MCH 35.1 H MCHC 33.2 RDW 13.7 Plt Count 204 MPV 8.4 Manual Slide Review Slide scanned. Platelet Comment Adequate, few giant Macrocytosis 2+ PT with INR INR PTT (Actin FS) Sodium Potassium 4.7 Chloride Carbon Dioxide Anion Gap BUN Creatinine Random Glucose Calcium Phosphorus Magnesium Troponin I 0.07 H B-Natriuretic Peptide TSH 07/12/17 07/13/17 07/13/17 21:45 03:50 06:30 WBC 7.5 7.1 RBC 3.12 L 3.27 L Hgb 10.9 11.2 Hct 33.0 34.8 MCV 105.7 H 106.6 H MCH 34.9 H 34.2 H MCHC 33.0 32.1 RDW 13.7 13.7 Plt Count 209 205 MPV 8.6 8.4 Manual Slide Review Platelet Comment Macrocytosis PT with INR INR PTT (Actin FS) Sodium Potassium Chloride Carbon Dioxide Anion Gap BUN Creatinine Random Glucose Calcium Phosphorus Magnesium Troponin I 0.06 H B-Natriuretic Peptide TSH 07/13/17 07/13/17 06:30 06:30 WBC RBC Hgb Hct MCV MCH MCHC RDW Plt Count MPV Manual Slide Review Platelet Comment Macrocytosis PT with INR 89.10 H INR 7.88 H* D PTT (Actin FS) Sodium 144 Potassium 4.7 Chloride 110 H Carbon Dioxide 22 Anion Gap 12 BUN 86 H Creatinine 2.3 H Random Glucose 65 L D Calcium 8.6 Phosphorus 5.4 H D Magnesium 2.2 Troponin I B-Natriuretic Peptide TSH 0.69 Problem List - Problems (1) CHF (congestive heart failure) Code(s): I50.9 - HEART FAILURE, UNSPECIFIED Qualifiers: Congestive heart failure type: combined Congestive heart failure chronicity : acute on chronic Qualified Code(s): I50.43 - Acute on chronic combined systolic (congestive) and diastolic (congestive) heart failure (2) Heme positive stool Code(s): R19.5 - OTHER FECAL ABNORMALITIES (3) Supratherapeutic INR Code(s): R79.1 - ABNORMAL COAGULATION PROFILE Assessment/Plan An 87 yof with supratheraputic INR and normal Hgb. No external signs of recent, or ongoing significant GI bleeding. Correct INR CHF exacerbation - clinically better monitor for signs of bleeding PPI Low salt diet No need for urgent GI intervention at this time. Discussed with the patient and her son in law Will follow and monitor
--- NOTE | 2017-07-13 10:56 | CON.CARD ---
Consult Consult Specialty:: Cardiology - History of Present Illness Chief Complaint: Shortness of breath. 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 S/P AV galen ablation, ICD/DOCUMENT CONTROL COORDINATOR. Admitted with progressive shortness of breath and diagnosed to have CHF. Denies having chest pain or discomfort. No history of palpitations, lightheadedness, dizziness or syncope. Denies having any recent upper respiratory tract infection. Past History: As mentioned in the HPI. History of Anxiety disorder. History of Asthma. S/p Herpes Zoster with post herpatic neuralgia. S/p left lower extremity embolization. Surgical history: S/p Appendectomy S/p Cholecystectomy S/p ICD/ DOCUMENT CONTROL COORDINATOR insertion. S/p AV Fistula/Graft S/p Hysterectomy S/pTonsillectomy Social history: Lives with her son. Former smoker, denies alcohol and drug use. Family history: Not available. Allergies: None reported. Active Medications Generic Name Dose Route Start Last Admin Trade Name Freq PRN Reason Stop Dose Admin Escitalopram Oxalate 10 mg 07/12/17 11:45 07/13/17 09:34 Lexapro - PO Not Given DAILY DAVINA Furosemide 40 mg 07/12/17 11:45 07/13/17 09:34 Lasix Injection - IVPUSH 40 mg DAILY DAVINA Administration Isosorbide Mononitrate 15 mg 07/12/17 11:45 07/13/17 09:33 Imdur - PO 15 mg DAILY DAVINA Administration Levothyroxine Sodium 100 mcg 07/12/17 11:45 07/13/17 09:34 Synthroid - PO 100 mcg DAILY DAVINA Administration Metoprolol Tartrate 50 mg 07/12/17 11:45 07/13/17 09:34 Lopressor - PO 50 mg BID DAVINA Administration Pantoprazole Sodium 40 mg 07/13/17 10:00 07/13/17 09:34 Protonix - PO 40 mg BID DAVINA Administration Sodium Bicarbonate 650 mg 07/12/17 14:00 07/13/17 06:38 Sodium Bicarbonate - PO Not Given TID DAVINA Review of Systems: Constitutional: No history of chills, fever or night sweats. No history of unintentional weight loss. HEENT: No history of headaches, diplopia, blurred vision. No history of epistaxis or hoarseness. No tinnitus. Cardiovascular: See history of present illness. Respiratory: See history of present illness. Intermittent nonproductive cough. No expectoration or hemoptysis. No history of tuberculosis. GI: No history of nausea, vomiting, melena, or hematemesis. No history of abdominal pain or discomfort, no change in bowel habits reported. See history of present illness. CEMENT PATCHER: No history of seizures, or syncope. No history of focal weakness. Endocrine: No history of polyuria or polydipsia. No history of intolerance to cold or warm weather. Musculoskeletal: No arthralgias or history of myalgia. : No history of frequency or hematuria. HEME: No history of bleeding, anemia or ecchymosis. O: 87 year old female in no acute distress, no pallor, cyanosis, clubbing, or jaundice. Last Vital Signs Temp Pulse Resp BP Pulse Ox 97.3 F L 79 18 158/71 98 07/13/17 08:00 07/13/17 08:00 07/13/17 08:00 07/13/17 08:00 07/13/17 08:00 Intake & Output 07/10/17 07/11/17 07/12/17 07/13/17 23:59 23:59 23:59 23:59 Intake Total 90 100 Balance 90 100 Weight 112 lb 6.4 oz Neck: Supple, no JVD, negative HJR, carotids were equal and upstrokes were normal, no bruits appreciated. No thyromegaly. Heart: PMI was in the 5th intercostal space, no heaves or thrills, S1 and S2 were normal. Ejection systolic murmur Grade II/ at the second right ICS and along the left sternal border. Decrescendo systolic murmur II/ at the apex. No diastolic murmur or gallops were appreciated. Lungs: Clear on auscultation bilaterally. Abdomen: Soft, nontender, no hepatosplenomegaly appreciated, and no palpable masses were felt. Extremities: No calf tenderness or dependent edema. DP and PT pulses could not be palpated. ECG: Probable Atrial fibrillation. Permanent pacemaker functioning in a fixed rate mode with consistent ventricular capture. Laboratory Results - last 24 hr 07/12/17 07/12/17 07/12/17 07:31 08:12 16:22 WBC RBC Hgb Hct MCV MCH MCHC RDW Plt Count MPV Manual Slide Review Platelet Comment Macrocytosis PT with INR INR PTT (Actin FS) 60.0 H Sodium 141 Potassium 4.7 Chloride 108 H Carbon Dioxide 24 Anion Gap 9 BUN 80 H Creatinine 2.2 H Random Glucose 100 Calcium 8.5 Phosphorus Magnesium Troponin I 0.06 H B-Natriuretic Peptide 95707.34 H TSH 07/12/17 07/12/17 07/12/17 16:22 21:30 21:30 WBC 8.6 RBC 3.33 L Hgb 11.7 Hct 35.2 MCV 105.8 H MCH 35.1 H MCHC 33.2 RDW 13.7 Plt Count 204 MPV 8.4 Manual Slide Review Slide scanned. Platelet Comment Adequate, few giant Macrocytosis 2+ PT with INR INR PTT (Actin FS) Sodium Potassium 4.7 Chloride Carbon Dioxide Anion Gap BUN Creatinine Random Glucose Calcium Phosphorus Magnesium Troponin I 0.07 H B-Natriuretic Peptide TSH 07/12/17 07/13/17 07/13/17 21:45 03:50 06:30 WBC 7.5 7.1 RBC 3.12 L 3.27 L Hgb 10.9 11.2 Hct 33.0 34.8 MCV 105.7 H 106.6 H MCH 34.9 H 34.2 H MCHC 33.0 32.1 RDW 13.7 13.7 Plt Count 209 205 MPV 8.6 8.4 Manual Slide Review Platelet Comment Macrocytosis PT with INR INR PTT (Actin FS) Sodium Potassium Chloride Carbon Dioxide Anion Gap BUN Creatinine Random Glucose Calcium Phosphorus Magnesium Troponin I 0.06 H B-Natriuretic Peptide TSH 07/13/17 07/13/17 06:30 06:30 WBC RBC Hgb Hct MCV MCH MCHC RDW Plt Count MPV Manual Slide Review Platelet Comment Macrocytosis PT with INR 89.10 H INR 7.88 H* D PTT (Actin FS) Sodium 144 Potassium 4.7 Chloride 110 H Carbon Dioxide 22 Anion Gap 12 BUN 86 H Creatinine 2.3 H Random Glucose 65 L D Calcium 8.6 Phosphorus 5.4 H D Magnesium 2.2 Troponin I B-Natriuretic Peptide TSH 0.69 IMPRESSION: 1. CHF NYHA Class III 2. CAD/S/p PCI/Stenting, Angina pectoris. 3. Hypertension/ Hypertensive cardiovascular disease. 4. S/p AV Galen ablation. 5. S/p ICD/ DOCUMENT CONTROL COORDINATOR. 6. Severe left ventricular systolic dysfunction. 7. Hypothyroidism, on replacement therapy. 8. Chronic kidney disease 9. Profound deafness. 10. Elevated INR. 11. Mild troponin elevation. 12. History of anxiety disorder. RECOMMENDATION: 1. Consider increasing the dose of Imdur to 60 mg PO daily. 2. If blood pressure remains stable consider adding BAILEE or ARB under closed monitoring of renal function. 3. Curtail sodium intake. 4. Daily weights. 5. Increase ambulation. 6. Close follow up of INR. 7. Interrogation of ICD/DOCUMENT CONTROL COORDINATOR according to protocol. Prognosis: Guarded. Attestation: Documentation prepared by Radha Avelar, acting as medical center director for Clarence Cannon MD. - Past Medical History Cardio/Vascular: Yes: AFIB, CAD (PCI), HTN, Hyperlipdemia, Other (Post REVEAL, implatable loop recorder) Pulmonary: Yes: Asthma Renal/: Yes: Renal Failure (ESRD on HD) ...LMP: 09/10/14 ...: No Psych: Yes: Anxiety Endocrine: Yes: Hypothyroidism - Past Surgical History Past Surgical History: Yes: Appendectomy, AV Fistula/Graft (done 4-5 yrs ago, now ligated and off HD), Cholecystectomy, Hysterectomy, Stent, Tonsillectomy - Alcohol/Substance Use Hx Alcohol Use: No - Smoking History Smoking history: Former smoker Have you smoked in the past 12 months: No Aproximately how many cigarettes per day: 10 If you are a former smoker, when did you quit?: OVER 50 YRS - Social History Usual Living Arrangement: With Child ADL: Independent History of Recent Travel: No Home Medications - Allergies Allergies/Adverse Reactions: Allergies Allergy/AdvReac Type Severity Reaction Status Date / Time No Known Drug Allergies Allergy Verified 07/12/17 06:24 - Home Medications Home Medications: Ambulatory Orders Acetaminophen [Tylenol] 650 mg PO PRN PRN 06/21/15 Escitalopram Oxalate [Lexapro -] 10 mg PO DAILY 06/21/15 Furosemide [Lasix -] 40 mg PO DAILY 06/21/15 Isosorbide Mononitrate 15 mg PO DAILY 06/21/15 Levothyroxine [Synthroid -] 100 mcg PO DAILY 06/21/15 Losartan Potassium 25 mg PO DAILY 06/21/15 Metoprolol Tartrate 50 mg PO BID 06/21/15 Sodium Bicarbonate 650 mg PO TID 06/21/15 Warfarin Sodium [Coumadin] 3 mg PO HS 06/21/15 Gabapentin 100 mg PO BID 07/12/17 Vital Signs: Vital Signs Temperature 97.3 F L 07/13/17 08:00 Pulse Rate 79 07/13/17 08:00 Respiratory Rate 18 07/13/17 08:00 Blood Pressure 158/71 07/13/17 08:00 O2 Sat by Pulse Oximetry (%) 98 07/13/17 08:00 - Other Data Labs, Other Data: CBC, BMP 07/13/17 06:30 07/13/17 06:30 INR, PTT INR 7.88 (0.82-1.09) H* D 07/13/17 06:30 Troponin, BNP 07/12/17 07/12/17 07/12/17 07:31 16:22 21:30 Troponin I 0.06 H 0.07 H B-Natriuretic Peptide 45970.34 H 07/13/17 03:50 Troponin I 0.06 H B-Natriuretic Peptide Troponin, BNP 07/12/17 07/12/17 07/12/17 07:31 16:22 21:30 Troponin I 0.06 H 0.07 H B-Natriuretic Peptide 83440.34 H 07/13/17 03:50 Troponin I 0.06 H B-Natriuretic Peptide
--- NOTE | 2017-07-13 10:58 | CONSULT ---
Admitting History and Physical - Primary Care Physician PCP: Irvin Colon - Admission History of Present Illness: 87 yo F admitted to telemetry inpatient service for supratherapeutic INR on coumadin and suspected acute decompensation of combined heart failure. Pt reports a h/o dysphagia with sw tx at [facility] 2 years ago. Shw reports needing to eat very soft moist food and cut it up in small pieces. She drinks thin liquids carefully and feels she tolerate PO intake with these modifications. History Source: Patient Limitations to Obtaining History: No Limitations - Past Medical History Cardiovascular: Yes: AFIB, CAD (PCI), HTN, Hyperlipdemia, Other (Post REVEAL, implatable loop recorder) Pulmonary: Yes: Asthma Renal/: Yes: Renal Failure (ESRD on HD) ...LMP: 09/10/14 ...: No Psych: Yes: Anxiety Endocrine: Yes: Hypothyroidism - Past Surgical History Past Surgical History: Yes: Appendectomy, AV Fistula/Graft (done 4-5 yrs ago, now ligated and off HD), Cholecystectomy, Hysterectomy, Stent, Tonsillectomy - Smoking History Smoking history: Former smoker Have you smoked in the past 12 months: No Aproximately how many cigarettes per day: 10 If you are a former smoker, when did you quit?: OVER 50 YRS - Alcohol/Substance Use Hx Alcohol Use: No - Social History ADL: Independent History of Recent Travel: No History - Admission Reason For Visit: DYSPNEA,BLOOD IN STOOL,INCREASED INR - Diagnostics X-ray: Report Reviewed - General Mental Status: Alert and Oriented, Awake and Alert, Able to Follow Commands Attention: Intact Ability to Follow Directions: Excellent Head/Neck Control: WFL - Hearing Hearing: Impaired Hearing Aide: Yes With Patient: No Speech Evaluation - Communication Primary Language: LATVIAN Communication: Yes: Within Normal Limits Oral Expression Ability: Yes: No Impairment - Speech Production Able to Make Needs Known: Yes: WNL Intelligibility: Yes: WNL - Speech Characteristics Voice Loudness: Normal Voice Pitch: Yes: Normal Voice Phonatory-based Quality: Yes: Normal Speech Pattern: Normal Nasal Resonance: Normal Articulation: Yes: Precise - Swallow Evaluation/Bedside Assessment Current Nutritional Intake: Regular, Thin Liquids Oral Secretions: Yes: WFL Dentition: Yes: Adequate, Dental Appliance Upper, Dental Appliance Lower Facial Symmetry at Rest: Symmetrical Facial Symmetry on Retraction: Symmetrical Facial Movement: Controlled Sensation: Normal Against Resistance Opening: Normal Against Resistance Closing: Normal Pucker Lips: Normal Smile: Normal Lingual Movement: Normal, Symmetric Lingual Speed of Movement: Normal Lingual Movement Strgth Against Opposition: Normal Lingual Movement Characteristics: Normal Velopharyngeal Movement: Normal Laryngeal Movement: Able to Palpate Rate of Intake: WFL Bolus Size: Small Labial Seal: WFL Chewing: WFL Oral Prep Time: WFL A-P Transit: WFL Pocketing: None Timing of Swallow: Delayed Coughing/Throat Clear: No Change in Voice: No Recommendations - Speech Evaluation, Impression/Plan Impression: Bedside swallowing evaluation unremarkable with exception of mildly delayed swallow onset. Pt was admitted for SOB. I reviewed the case with Cardiology and he feels she has CHF, but that aspiration may also be present. As we discussed, we can monitor her and always perform an MBS as an out pt,if neccessary. - Dysphagia Impressions/Plan Dysphagia Impressions: Ongoing Evaluation *Silent aspiration: cannot be R/O at bedside Dysphagia Treatment Plan: Small Bites, Chin Tuck/Down, Safe Rate, 1/2 tsp. at a time, OOB for meals, OOB for 1 h. after meals Recommendations: Modified Barium Swallow (if symptoms of aspiration reported or observed, fever,congestion,infiltrates) - Recommendations Diet Consistency: Regular (soft, moist, cohesive) Liquids: Thin Liquids
--- NOTE | 2017-07-13 15:21 | MSN ---
Progress Note (SOAP) - Subjective Chief Complaint: SOB, Melena History of Present Illness: Patient examined this morning, awake laying supine with the head of the bed elevated. No acute events overnight as per nursing. She says she slept well and has been feeling much better since her admission. She admits most of her SOB has resolved. Denies any fevers, chills, chest pain, palpitatoins SOB, nausea or vomiting. - Current Medications Current Medications: Active Medications Escitalopram Oxalate (Lexapro -) 10 mg PO DAILY [facility] Last Admin: 07/13/17 09:34 Dose: Not Given Furosemide (Lasix Injection -) 40 mg IVPUSH DAILY [facility] Last Admin: 07/13/17 09:34 Dose: 40 mg Isosorbide Mononitrate (Imdur -) 15 mg PO DAILY [facility] Last Admin: 07/13/17 09:33 Dose: 15 mg Levothyroxine Sodium (Synthroid -) 100 mcg PO DAILY [facility] Last Admin: 07/13/17 09:34 Dose: 100 mcg Metoprolol Tartrate (Lopressor -) 50 mg PO BID [facility] Last Admin: 07/13/17 09:34 Dose: 50 mg Pantoprazole Sodium (Protonix -) 40 mg PO BID [facility] Last Admin: 07/13/17 09:34 Dose: 40 mg Sodium Bicarbonate (Sodium Bicarbonate -) 650 mg PO TID [facility] Last Admin: 07/13/17 13:35 Dose: Not Given - Objective Vital Signs: Vital Signs Temperature 98.4 F 07/13/17 15:15 Pulse Rate 80 07/13/17 15:15 Respiratory Rate 18 07/13/17 15:15 Blood Pressure 103/44 07/13/17 15:15 O2 Sat by Pulse Oximetry (%) 98 07/13/17 08:00 Constitutional: Yes: No Distress, Calm Eyes: Yes: EOM Intact, PERRL, Other (Moist occular membranes) Neck: Yes: Supple Cardiovascular: Yes: Regular Rate and Rhythm, S1, S2. No: JVD, Gallop, Murmur, Rub, Other (No Hepatojugular Reflux) Respiratory: Yes: On Nasal O2 (2L via nasal canula), SOB (Mild; Improved since yesterday), Wheezes (at the Lung bases B/L). No: Poor Air Entry Gastrointestinal: Yes: Normal Bowel Sounds, Soft. No: Ascites, Distention, Tenderness, Tenderness, Rebound, Vomiting Peripheral Pulses: Left Radial: 2+, Right Radial: 2+ Edema: LLE: Trace, RLE: Trace Integumentary: Yes: Other (Right Chest wall tender to plapation [patient says from shingles]) Neurological: Yes: Alert, Oriented, Cran Nerves II-XII Intact. No: Loss of Sensation (Sensation intact B/L C5-T1 and L4-S1), Numbness, Paresthesia, Tingling, Weakness ...Motor Strength: Yes: LUE, RUE (5/5 with Shoulder abduction, elbow flexion and extension) Labs Lab Results: Laboratory Results - last 24 hr 07/12/17 07/12/17 07/12/17 16:22 16:22 21:30 WBC 8.6 RBC 3.33 L Hgb 11.7 Hct 35.2 MCV 105.8 H MCH 35.1 H MCHC 33.2 RDW 13.7 Plt Count 204 MPV 8.4 Manual Slide Review Slide scanned. Platelet Comment Adequate, few giant Macrocytosis 2+ PT with INR INR Sodium 141 Potassium 4.7 4.7 Chloride 108 H Carbon Dioxide 24 Anion Gap 9 BUN 80 H Creatinine 2.2 H Random Glucose 100 Calcium 8.5 Phosphorus Magnesium Troponin I 0.06 H TSH 07/12/17 07/12/17 07/13/17 21:30 21:45 03:50 WBC 7.5 RBC 3.12 L Hgb 10.9 Hct 33.0 MCV 105.7 H MCH 34.9 H MCHC 33.0 RDW 13.7 Plt Count 209 MPV 8.6 Manual Slide Review Platelet Comment Macrocytosis PT with INR INR Sodium Potassium Chloride Carbon Dioxide Anion Gap BUN Creatinine Random Glucose Calcium Phosphorus Magnesium Troponin I 0.07 H 0.06 H TSH 07/13/17 07/13/17 07/13/17 06:30 06:30 06:30 WBC 7.1 RBC 3.27 L Hgb 11.2 Hct 34.8 MCV 106.6 H MCH 34.2 H MCHC 32.1 RDW 13.7 Plt Count 205 MPV 8.4 Manual Slide Review Platelet Comment Macrocytosis PT with INR 89.10 H INR 7.88 H* D Sodium 144 Potassium 4.7 Chloride 110 H Carbon Dioxide 22 Anion Gap 12 BUN 86 H Creatinine 2.3 H Random Glucose 65 L D Calcium 8.6 Phosphorus 5.4 H D Magnesium 2.2 Troponin I TSH 0.69 Imaging - Results Chest X-ray: Report Reviewed (On 07/12: No evidence of pneumonia, atelectasis, CHF. No Pleural effusion or pneumonia.) Other: Other (Echo on 07/12: Moderate Hypokinesis of LV. PPM in R Atrium and ventricle. Mild MR. Moderate TR. Rv pressures 50-60. Mild . Mild AR. EF 39%) Problem List - Problems (1) CHF (congestive heart failure) Code(s): I50.9 - HEART FAILURE, UNSPECIFIED Qualifiers: Congestive heart failure type: systolic Congestive heart failure chronicity : acute on chronic Qualified Code(s): I50.23 - Acute on chronic systolic ( congestive) heart failure Assessment/Plan 87 y/o female w/ PMHXx of AFib (On Comadin at home), CHF s/p Biventricular Pacemaker, HTN, HLD, Hypothyroidism, CKD and Angina and CAD s/p PCI and Stent placement was admitted yesterday to telemetry inpatient service due to Acute on Chronic Systolic Heart failure and Upper GI Bleed. 1. Acute of Chronic Systolic Heart Failure - SOB has improved with 2L on NC and bed head height elevated 30-45 degrees - Lower extremity Edema has improved, only Trace amount remains - Continue Lasix 40mg IV BID - Continue Metoprolol Tartrate 50 mg PO BID - Continue Isosorbide Mononitrate 15 mg PO Daily - Daily Weights, Strict I&O's - Tele monitoring - Echo on 07/12: LV Systolic function moderately reduced. Moderate Hypokinesis of LV. PPM in R Atrium and ventricle. Mild MR. Moderate TR. Rv pressures 50-60. Mild . Mild AR. EF 39% 2. Melana likely due to Upper GI Bleed in the setting of Coumadin use - Hold Coumadin 5mg; INR on 07/12 was 6.02, Repeat INR on 07/13 was 7.88. H&H since admission has remained stable. Will consider reversal with Vitamin K if INR continues to trend upward. Continue to monitor INR - Continue Protonix gtt - GI Consult: Appreciate Recommendations 3. History of Atrial Fibrillation - EKG on 07/12 showed paced rhythm - Continue Metoprolol Tartrate 50 mg PO BID - Hold Coumadin 5mg 4. HTN - BP since admission has ranged from 103-165/44-90 - Continue Metoprolol Tartrate 50 mg PO BID - Continue Isosorbide Mononitrate 15 mg PO Daily - Can Start her home dose of Losartan potassium 25 mg PO Daily if K+ levels remain within normal range and are not elevated 5. Hyperkalemia - Repeat K+ today was 4.7 - Continue to monitor 6. DVT PPx - Supratherapeutic INR; Hold Coumadin 5mg - SCDs
--- NOTE | 2017-07-13 18:17 | PN ---
Teaching Attending Note Name of Resident: Akin Victoria ATTENDING PHYSICIAN STATEMENT I saw and evaluated the patient. I reviewed the resident's note and discussed the case with the resident. I agree with the resident's findings and plan as documented. SUBJECTIVE: No fever or hcills, SOB has much improved . NO Cp OBJECTIVE: NAD, awake , alert and oriented x3. tachypnic CV: RRR, 3/6/ SM at LLSB and apex . JVD Lungs: minimal bibasiar crackles , no wheezing Abd: soft, Nt, ND , NL BS Ext: 1+ edema , chronic hyperpugmentation of skin on egs . DP 2+ b/l ASSESSMENT AND PLAN: 87 y/o lady with h/o CHF, HTN, CAD, PCI, s/p Pacemaker , A fib, DM, hypothyroidism, CKD on HD previously and ther medical problems who presented with SOB and melena. 1- Acute on chronic Systolic heart failure . echo reviewed. - cont lasix IV 40 mg daily - weight and I&O - Tele monitoring , no events on tele - cont BB, increase imdur . - resume losartan since hyperkalemia has resolved 2- Melena: likely due to Upper GI bleed in setting of coumadin coagulopathy. - PO protonix - follow H&H - INR has increased, but pt has no signs of continued bled. will not reverse INR yet 3- H/O A fib: - cont BB - hold coumadin as above , and reverse if any further signs of bleed or if INR cont to increase 4-Mild hyperkalemia: resolved 5- HTN: resume ARB cont BB and increase IMdur HLOC
[2017-07-13] MEDS ORDERED: MELATONIN 5 MG TABLETS PO ONE (20:03)
[2017-07-14] MEDS: SODIUM BICARBONATE 650 MG TABLET PO SCH ×2 (05:08→14:03)
[2017-07-14 08:41] LABS: HEMATOCRIT 34.3 % (32.4-45.2); HEMOGLOBIN 11.3 GM/dL (10.7-15.3); MCH 34.4 pg (25.7-33.7); MEAN CELL VOLUME 104.4 fl (80-96); PLATELET COUNT 217 K/MM3 (134-434); RBC 3.29 M/mm3 (3.60-5.2); RDW 13.4 % (11.6-15.6); WHITE BLOOD COUNT 7.4 K/mm3 (4.0-10.0)
[2017-07-14 09:01] LABS: ALBUMIN 3.5 g/dl (3.4-5.0); BLOOD UREA NITROGEN 78 mg/dL (7-18); CALCIUM 8.3 mg/dL (8.5-10.1); CHLORIDE 105 mmol/L (98-107); SODIUM 142 mmol/L (136-145)
[2017-07-14 09:07] LABS: ALK PHOS 88 U/L (45-117); ANION GAP 10 (8-16); CO2 27 mmol/L (21-32); CREATININE 2.6 mg/dL (0.55-1.02); GLUCOSE,RANDOM 97 mg/dL (74-106); SGOT/AST 21 U/L (15-37); SGPT/ALT 17 U/L (12-78); TOT PROT 6.3 g/dl (6.4-8.2)
[2017-07-14 09:11] LABS: PROTHROMBIN TIME (PATIENT) 118.6 SEC (9.98-11.88)
[2017-07-14 09:20] LABS: INR 10.5 (0.82-1.09)
[2017-07-14] MEDS: ISOSORBIDE MONONITRATE 30 MG TAB.SR.24H (FP) PO SCH (10:37)
[2017-07-14] MEDS: METOPROLOL TARTRATE 50 MG TABLET (FP) PO SCH ×2 (10:37→21:43)
[2017-07-14] MEDS: FUROSEMIDE 40 MG/4 ML INJECTABLE VIAL IVPUSH SCH (10:37)
[2017-07-14] MEDS: LOSARTAN POTASSIUM 25 MG TABLET PO SCH (10:37)
[2017-07-14] MEDS: PANTOPRAZOLE 40 MG TABLET (FP) PO SCH ×2 (10:38→21:48)
[2017-07-14] MEDS: LEVOTHYROXINE NA 100 MCG TABLET (FP) PO SCH (10:38)
[2017-07-14] MEDS: ESCITALOPRAM OXALATE 10 MG TABLET (FP) PO SCH (10:38)
--- NOTE | 2017-07-14 10:39 | PN ---
Progress Note, Physician History of Present Illness: Dr. Collins covering Dr. Cannon Feels improved, less dyspnea Urinating to lasix No overt bleeding Tele: V-paced at 80s - Current Medication List Current Medications: Active Medications Escitalopram Oxalate (Lexapro -) 10 mg PO DAILY [facility] Last Admin: 07/13/17 09:34 Dose: Not Given Furosemide (Lasix Injection -) 40 mg IVPUSH DAILY [facility] Last Admin: 07/13/17 09:34 Dose: 40 mg Isosorbide Mononitrate (Imdur -) 30 mg PO DAILY [facility] Levothyroxine Sodium (Synthroid -) 100 mcg PO DAILY [facility] Last Admin: 07/13/17 09:34 Dose: 100 mcg Losartan Potassium (Cozaar -) 25 mg PO DAILY [facility] Metoprolol Tartrate (Lopressor -) 50 mg PO BID [facility] Last Admin: 07/13/17 21:07 Dose: 50 mg Pantoprazole Sodium (Protonix -) 40 mg PO BID [facility] Last Admin: 07/13/17 21:07 Dose: 40 mg Phytonadione (Mephyton -) 5 mg PO ONCE ONE Stop: 07/14/17 10:46 Sodium Bicarbonate (Sodium Bicarbonate -) 650 mg PO TID [facility] Last Admin: 07/14/17 05:08 Dose: Not Given - Objective Vital Signs: Vital Signs Temperature 97.5 F L 07/14/17 10:00 Pulse Rate 80 07/14/17 10:00 Respiratory Rate 20 07/14/17 10:00 Blood Pressure 129/66 07/14/17 10:00 O2 Sat by Pulse Oximetry (%) 97 07/13/17 21:00 Constitutional: Yes: No Distress, Calm Eyes: Yes: WNL HENT: Yes: WNL Neck: Yes: WNL Cardiovascular: Yes: Regular Rate and Rhythm, Murmur Respiratory: Yes: Regular, CTA Bilaterally Gastrointestinal: Yes: Normal Bowel Sounds Musculoskeletal: Yes: WNL Extremities: Yes: WNL Edema: No Labs: CBC, BMP 07/14/17 07:30 07/14/17 07:30 INR, PTT INR 10.50 (0.82-1.09) H* 07/14/17 07:30 Assessment/Plan 87 year old white female with history of CAD s/p PCI/Stenting, Permanent atrial fibrillation, left ventricular systolic dysfunction, Hypertension, HVCD, Hypothyroidism, 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 S/P AV surinder ablation, ICD/INSPECTOR PUBLICATIONS. Admitted with progressive shortness of breath and diagnosed to have CHF with supratherapeutic NR 1) HFrEF -Echo showing moderately reduced LVEF and moderate PH (RVSP 50-6-mmHg) -Subjectively improved with lasix 40mg daily and appears euvolemic on exam this AM -Would hold IV Lasix given interval rise in Cr to 2.6 -Otherwise continue current regimen with Metoprolol and ARB (Losartan) and long acting nitrate -Follow BUN/Cr and volume status off diuretic 2) Supratherapeutic INR -On Coumadin for persistent Afib stroke prevention -INR increased to 10 today -No evidence of spontaneous bleeding at this time. -Would recommend Vit K administration (5mg PO)
[2017-07-14] MEDS ORDERED: PHYTONADIONE 5 MG TABLET PO ONE (10:45)
--- NOTE | 2017-07-14 11:54 | PN ---
Teaching Attending Note Name of Resident: Mary Jo Bhakta ATTENDING PHYSICIAN STATEMENT I saw and evaluated the patient. I reviewed the resident's note and discussed the case with the resident. I agree with the resident's findings and plan as documented. SUBJECTIVE: SOB is better . has no CP or SOB . denied any BM or bleeding OBJECTIVE: NAD, awake , alert and oriented x3. CV: RRR, 3/6/ SM at LLSB and apex . JVD Lungs: minimal bibasiar crackles , no wheezing Abd: soft, Nt, ND , NL BS Ext: 1+ edema , chronic hyperpugmentation of skin on egs . DP 2+ b/l ASSESSMENT AND PLAN: 87 y/o lady with h/o CHF, HTN, CAD, PCI, s/p Pacemaker , A fib, DM, hypothyroidism, CKD on HD previously and ther medical problems who presented with SOB and melena. 1- Acute on chronic Systolic heart failure . - cont lasix IV 40 mg today . Cr has increased, might switch to PO lasix in am - weight and I&O - Tele monitoring , no events on tele - cont BB, imdur 30 today, and if tolerated can increase . - Cont losartan, if Cr cont to increase will probably hold again 2- Melena: likely due to Upper GI bleed in setting of coumadin coagulopathy. stopped, stable HB - PO protonix - follow H&H - give Vit K 3- H/O A fib: - cont BB - hold coumadin as above . give Vit K x1 4-Mild hyperkalemia: resolved 5- HTN: resume ARB cont BB and IMdur HLOC
--- NOTE | 2017-07-14 12:30 | PN ---
Physical Exam: SUBJECTIVE: Patient seen and examined by me at bedside. No overnight events noted. Cardiac monitoring was only significant for PVC >10 minutes. Otherwise , patient reports feeling much better and slept throughout the night. Patient denies fever, chills, nausea, vomiting, shortness of breath, chest pain, palpitations, abdominal pain, diarrhea, constipation. OBJECTIVE: Vital Signs Period Temp Pulse Resp BP Sys/Maciel Pulse Ox Last 24 Hr 97.1 F-98.4 F 78-81 18-20 103-130/44-70 97-99 GENERAL: The patient is awake, alert, and fully oriented, in no acute distress. HEAD: Normal with no signs of trauma. EYES: 2mm pupils bilaterally, PERRL, extraocular movements intact, sclera anicteric, conjunctiva clear. ENT: Oropharynx clear without exudates, moist mucous membranes. Dentures in place NECK: 3-4 cm JVD bilaterally LUNGS: Decreased breath sounds throughout with crackles bilaterally. No accessory muscle use HEART: 2/6 systolic murmur at the RUSB with no rubs or gallops. Pacemaker on the LUSB ABDOMEN: Soft, nontender, nondistended, normoactive bowel sounds, no guarding, no rebound. EXTREMITIES: 1+ pitting edema bilaterally with bilateral chronic venous changes. 2+ dp bilaterally NEUROLOGICAL: Cranial nerves II through XII grossly intact. Normal speech. Motor strength 5/5 bilaterally with sensory intact PSYCH: Normal mood, normal affect. SKIN: Warm, dry, normal turgor, no rashes or lesions noted Laboratory Results - last 24 hr 07/14/17 07/14/17 07/14/17 07:30 07:30 07:30 WBC 7.4 RBC 3.29 L Hgb 11.3 Hct 34.3 MCV 104.4 H MCH 34.4 H MCHC 33.0 RDW 13.4 Plt Count 217 MPV 8.0 PT with INR 118.60 H INR 10.50 H* Sodium 142 Potassium 4.0 Chloride 105 Carbon Dioxide 27 D Anion Gap 10 BUN 78 H Creatinine 2.6 H Creat Clearance w eGFR 17.33 Random Glucose 97 D Calcium 8.3 L Total Bilirubin 1.0 D AST 21 D ALT 17 Alkaline Phosphatase 88 Total Protein 6.3 L Albumin 3.5 Active Medications Generic Name Dose Route Start Last Admin Trade Name Freq PRN Reason Stop Dose Admin Escitalopram Oxalate 10 mg 07/12/17 11:45 07/14/17 10:38 Lexapro - PO Not Given DAILY DAVINA Furosemide 40 mg 07/12/17 11:45 07/14/17 10:37 Lasix Injection - IVPUSH 40 mg DAILY DAVINA Administration Isosorbide Mononitrate 30 mg 07/13/17 18:09 07/14/17 10:37 Imdur - PO 30 mg DAILY DAVINA Administration Levothyroxine Sodium 100 mcg 07/12/17 11:45 07/14/17 10:38 Synthroid - PO 100 mcg DAILY DAVINA Administration Losartan Potassium 25 mg 07/14/17 10:00 07/14/17 10:37 Cozaar - PO 25 mg DAILY DAVINA Administration Metoprolol Tartrate 50 mg 07/12/17 11:45 07/14/17 10:37 Lopressor - PO 50 mg BID DAVINA Administration Pantoprazole Sodium 40 mg 07/13/17 10:00 07/14/17 10:38 Protonix - PO 40 mg BID DAVINA Administration Sodium Bicarbonate 650 mg 07/12/17 14:00 07/14/17 05:08 Sodium Bicarbonate - PO Not Given TID DAVINA CXR: 07/12 - No evidence of pneumonia, atelectasis, CHF. No pleural effusion, or pneumothorax is seen. ECHO 07/12 - Moderate hypokinesis of LV. PPM in R atrium and ventricle. Mild MR. Moderate TR. RV pressures 50-60. Mild . mildAR. EF 39% ASSESSMENT/PLAN: Patient is an 87 year old Female with a PMHx of Persistent Afib (on coumadin), Systolic CHF, hypothyroidism, ESRD and CAD (PCI, prior stenting) who presented with SOB of 1 day duration, now found with acute on chronic CHF and GI bleeding in setting of supratherapeutic INR (6.02). Melena Secondary to Supratherapeutic INR -Level >10 today. -Vitamin K 5mg PO ordered -Will continue to hold Coumadin -No report of melena since admission -Continue Protonix 40mg BID -Continue to trend CBC and INR Acute on Chronic Systolic CHF -Continue Lasix 40mg IVP daily -Strict I&O's with daily weights -Imdur 30mg PO, will increase Imdur to 60 if BP tolerates -Continue Lopressor 50mg PO BID -Continue caridac monitoring -Continue Losartan 25mg daily Persistent Atrial Fibrillation -Continue with Lopressor 50mg BID -Will continue to hold Coumadin due to supratherapeutic INR -Continue Tele monitoring Hypertension-Controlled -Continue Lopressor 50mg BID -Continue LOsartan 25mg daily -Continu to monitor BP Hypothyroidism-Controlled -TSH 1.55 -Continue Synthroid 100mcg in the morning CKD Stage IV -Continue Sodium bicarb 650mg TID -Continue to trend BMP Depression -Continue Lexapro 10mg daily F/E/N -On no fluids -Electrolytes wnl -Sodium controlled diet Prophylaxis -High Risk. No AC due to supratherapeutic INR. -No GI required Disposition -Full code -Continues to have supratherapeutic INR. Will need to continue to monitor for at least another day Visit type - Emergency Visit Emergency Visit: Yes ED Registration Date: 07/12/17 Care time: The patient presented to the Emergency Department on the above date and was hospitalized for further evaluation of their emergent condition. - New Patient This patient is new to me today: Yes Date on this admission: 07/14/17 - Critical Care Critical Care patient: No
[2017-07-14] MEDS ORDERED: MELATONIN 5 MG TABLETS PO ONE (21:48)
[2017-07-15] MEDS: ACETAMINOPHEN 325 MG TABLET (FP) PO PRN ×2 (00:34→21:32)
[2017-07-15] MEDS: LEVOTHYROXINE NA 100 MCG TABLET (FP) PO SCH (06:07)
[2017-07-15 08:10] LABS: HEMATOCRIT 33.2 % (32.4-45.2); HEMOGLOBIN 10.8 GM/dL (10.7-15.3); MCH 34.3 pg (25.7-33.7); MCHC 32.6 g/dl (32.0-36.0); MEAN CELL VOLUME 105.2 fl (80-96); PLATELET COUNT 210 K/MM3 (134-434); RBC 3.16 M/mm3 (3.60-5.2); RDW 13.6 % (11.6-15.6); WHITE BLOOD COUNT 6.9 K/mm3 (4.0-10.0)
[2017-07-15 08:29] LABS: INR 3.35 (0.82-1.09); PROTHROMBIN TIME (PATIENT) 37.8 SEC (9.98-11.88)
[2017-07-15 08:30] LABS: ANION GAP 8 (8-16); BLOOD UREA NITROGEN 73 mg/dL (7-18); CALCIUM 8.4 mg/dL (8.5-10.1); CHLORIDE 104 mmol/L (98-107); CO2 29 mmol/L (21-32); CREATININE 3.1 mg/dL (0.55-1.02); GLUCOSE,RANDOM 93 mg/dL (74-106); POTASSIUM 3.6 mmol/L (3.5-5.1); SODIUM 141 mmol/L (136-145)
--- NOTE | 2017-07-15 08:42 | PN ---
Progress Note, Physician History of Present Illness: No complaints overnight BM this AM - no blood No dyspnea or chest pain Received Vit K - Current Medication List Current Medications: Active Medications Acetaminophen (Tylenol -) 650 mg PO Q6H PRN PRN Reason: FEVER OR PAIN Last Admin: 07/15/17 00:34 Dose: 650 mg Isosorbide Mononitrate (Imdur -) 30 mg PO DAILY [facility] Last Admin: 07/14/17 10:37 Dose: 30 mg Levothyroxine Sodium (Synthroid -) 100 mcg PO DAILY@0700 [facility] Last Admin: 07/15/17 06:07 Dose: 100 mcg Losartan Potassium (Cozaar -) 25 mg PO DAILY [facility] Last Admin: 07/14/17 10:37 Dose: 25 mg Metoprolol Tartrate (Lopressor -) 50 mg PO BID [facility] Last Admin: 07/14/17 21:43 Dose: Not Given Pantoprazole Sodium (Protonix -) 40 mg PO BID [facility] Last Admin: 07/14/17 21:48 Dose: 40 mg - Objective Vital Signs: Vital Signs Temperature 97.5 F L 07/15/17 05:30 Pulse Rate 80 07/15/17 05:30 Respiratory Rate 18 07/15/17 05:30 Blood Pressure 107/55 07/15/17 05:30 O2 Sat by Pulse Oximetry (%) 96 07/14/17 21:00 Constitutional: Yes: Well Nourished, No Distress, Calm Eyes: Yes: WNL HENT: Yes: WNL Neck: Yes: WNL, Supple Cardiovascular: Yes: Regular Rate and Rhythm, Murmur Respiratory: Yes: Regular, CTA Bilaterally Gastrointestinal: Yes: Normal Bowel Sounds Musculoskeletal: Yes: WNL Extremities: Yes: WNL Edema: No Labs: CBC, BMP 07/15/17 07:45 07/15/17 07:45 INR, PTT INR 3.35 (0.82-1.09) H D 07/15/17 07:45 Assessment/Plan 87 year old white female with history of CAD s/p PCI/Stenting, Permanent atrial fibrillation, left ventricular systolic dysfunction, Hypertension, HVCD, Hypothyroidism, 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 S/P AV surinder ablation, ICD/[employer]. Admitted with progressive shortness of breath and diagnosed to have CHF with supratherapeutic NR 1) HFrEF -Echo showing moderately reduced LVEF and moderate PH (RVSP 50-6-mmHg) -Subjectively improved with lasix 40mg daily and appears euvolemic on exam this AM -Would hold IV Lasix given interval rise in Cr to 2.6 -Otherwise continue current regimen with Metoprolol and ARB (Losartan) and long acting nitrate -Follow BUN/Cr and volume status off diuretic 2) Supratherapeutic INR -On Coumadin for persistent Afib stroke prevention -Received Vit K 5mg with decrease in INR to 3.3 -No evidence of spontaneous bleeding at this time.
[2017-07-15] MEDS: METOPROLOL TARTRATE 50 MG TABLET (FP) PO SCH (09:36)
[2017-07-15] MEDS: PANTOPRAZOLE 40 MG TABLET (FP) PO SCH ×2 (09:36→21:34)
[2017-07-15] MEDS: LOSARTAN POTASSIUM 25 MG TABLET PO SCH (09:36)
[2017-07-15] MEDS: ISOSORBIDE MONONITRATE 30 MG TAB.SR.24H (FP) PO SCH (09:36)
--- NOTE | 2017-07-15 13:41 | PN ---
Progress Note (short form) - Note Progress Note: Subjective: no fever or chills . has no SOB . no CRUZ or dizziness Objective: Vital Signs: Last Vital Signs Temp Pulse Resp BP Pulse Ox 97.8 F 78 18 77/37 96 07/15/17 13:00 07/15/17 13:00 07/15/17 13:00 07/15/17 13:00 07/15/17 09:00 Laboratory Results - last 24 hr 07/15/17 07/15/17 07/15/17 07:45 07:45 07:45 WBC 6.9 RBC 3.16 L Hgb 10.8 Hct 33.2 MCV 105.2 H MCH 34.3 H MCHC 32.6 RDW 13.6 Plt Count 210 MPV 8.0 PT with INR 37.80 H INR 3.35 H D Sodium 141 Potassium 3.6 Chloride 104 Carbon Dioxide 29 Anion Gap 8 BUN 73 H Creatinine 3.1 H Random Glucose 93 Calcium 8.4 L Physical Exam: NAD, awake , alert and oriented x3. CV: RRR, 3/6/ SM at LLSB and apex . No JVD Lungs:CTAB Abd: soft, Nt, ND , NL BS Ext: no edema today . DP 2+ b/l ASSESSMENT AND PLAN: 87 y/o lady with h/o CHF, HTN, CAD, PCI, s/p Pacemaker , A fib, DM, hypothyroidism, CKD on HD previously and ther medical problems who presented with SOB and melena. 1- Acute on chronic Systolic heart failure . was diuresed, now hypotensive and Cr increased to 3. - cont to hold diuresis - give NS at 75 cc/hr x 3 hrs - hold losartan and decrease BB with holding parameters 2- Melena: likely due to Upper GI bleed in setting of coumadin coagulopathy. stopped, stable HB - PO protonix - follow H&H - will touch base with GI for any plans for EGD 3- H/O A fib: - cont BB at a lower dose - INR 3.2 after Vit K yesterday. will resume coumadin tomorrow if no plans for EGD 4-Mild hyperkalemia: resolved 5- HTN: now hypotensive - hold Losartan due to renal failure - decrease dose of IMdur and BB with holding parameters 6- CECILIA o n CKD : probably form volume depletion after diuresis - - gentle hydration x 3 hours - hold losartan - monitor HLOC Visit type - Emergency Visit Emergency Visit: Yes ED Registration Date: 07/12/17 Care time: The patient presented to the Emergency Department on the above date and was hospitalized for further evaluation of their emergent condition. - New Patient This patient is new to me today: No - Critical Care Critical Care patient: No
[2017-07-15] MEDS ORDERED: SODIUM CHLORIDE 1,000 ML IV SCH (13:45)
[2017-07-15] MEDS ORDERED: MELATONIN 5 MG TABLETS PO ONE (19:30)
[2017-07-15] MEDS: METOPROLOL TARTRATE 25 MG TABLET (FP) PO SCH (21:31)
[2017-07-16] MEDS: LEVOTHYROXINE NA 100 MCG TABLET (FP) PO SCH (06:16)
[2017-07-16 07:39] LABS: HEMOGLOBIN 10.6 GM/dL (10.7-15.3); MCH 34.7 pg (25.7-33.7); MCHC 33.1 g/dl (32.0-36.0); MEAN CELL VOLUME 104.6 fl (80-96); MEAN PLT VOLUME 8.1 fl (7.5-11.1); PLATELET COUNT 205 K/MM3 (134-434); RBC 3.06 M/mm3 (3.60-5.2); RDW 13.4 % (11.6-15.6); WHITE BLOOD COUNT 6.3 K/mm3 (4.0-10.0)
[2017-07-16 08:01] LABS: INR 1.7 (0.82-1.09); PROTHROMBIN TIME (PATIENT) 19.2 SEC (9.98-11.88)
[2017-07-16 08:06] LABS: ANION GAP 7 (8-16); BLOOD UREA NITROGEN 69 mg/dL (7-18); CHLORIDE 104 mmol/L (98-107); CO2 28 mmol/L (21-32); CREATININE 2.9 mg/dL (0.55-1.02); GLUCOSE,RANDOM 92 mg/dL (74-106); MAGNESIUM 2.1 mg/dL (1.8-2.4); PHOSPHOROUS 3.7 mg/dL (2.5-4.9); POTASSIUM 3.7 mmol/L (3.5-5.1); SODIUM 139 mmol/L (136-145)
[2017-07-16] MEDS: PANTOPRAZOLE 40 MG TABLET (FP) PO SCH ×2 (09:44→22:26)
[2017-07-16] MEDS: METOPROLOL TARTRATE 25 MG TABLET (FP) PO SCH ×2 (09:44→22:26)
[2017-07-16] MEDS: ISOSORBIDE MONONITRATE 30 MG TAB.SR.24H (FP) PO SCH (09:44)
--- NOTE | 2017-07-16 12:22 | MSN ---
Progress Note (SOAP) - Subjective Chief Complaint: SOB, Melena History of Present Illness: Patient examined this morning, awake laying supine with the head of the bed elevated. She says she slept well. Patient has been feeling much better since her admission but still feels some weakness. She admits most of her SOB has resolved and that she is breathing better. Additionally, she has not had a BM in 3 days. Denies any urinary sx's. Denies any fevers, chills, chest pain, palpitations, nausea or vomiting. No acute events overnight as per nursing. - Current Medications Current Medications: Active Medications Acetaminophen (Tylenol -) 650 mg PO Q6H PRN PRN Reason: FEVER OR PAIN Last Admin: 07/15/17 21:32 Dose: 650 mg Isosorbide Mononitrate (Imdur -) 15 mg PO DAILY [facility] Last Admin: 07/16/17 09:44 Dose: 15 mg Levothyroxine Sodium (Synthroid -) 100 mcg PO DAILY@0700 [facility] Last Admin: 07/16/17 06:16 Dose: 100 mcg Metoprolol Tartrate (Lopressor -) 25 mg PO BID [facility] Last Admin: 07/16/17 09:44 Dose: 25 mg Pantoprazole Sodium (Protonix -) 40 mg PO BID [facility] Last Admin: 07/16/17 09:44 Dose: 40 mg - Objective Vital Signs: Vital Signs Temperature 97.2 F L 07/16/17 10:00 Pulse Rate 81 07/16/17 10:41 Respiratory Rate 18 07/16/17 10:00 Blood Pressure 121/59 07/16/17 10:00 O2 Sat by Pulse Oximetry (%) 96 07/16/17 10:41 Constitutional: Yes: No Distress Eyes: Yes: EOM Intact, PERRL Neck: Yes: Supple Cardiovascular: Yes: Regular Rate and Rhythm, S1, S2. No: JVD Respiratory: Yes: CTA Bilaterally, On Nasal O2 (2L) Gastrointestinal: Yes: Normal Bowel Sounds, Soft. No: Distention, Tenderness, Tenderness, Rebound Edema: No (LE Edema b/l resolved) Integumentary: Yes: Other (Right Chest wall pain 2/2 Shingles). No: Bruising, Erythema, Rash (No Vesicles present) Neurological: Yes: Alert, Oriented, Cran Nerves II-XII Intact. No: Loss of Sensation, Numbness (C5-T1 and L4-S1 intact B/L), Paresthesia ...Motor Strength: Yes: LUE (5/5 in Shoulder abduction, Elbow Flexion, Elbow extension), LLE (5/5 in Hip flexion, Knee Flexion), RUE (5/5 in Shoulder abduction, Elbow Flexion, Elbow extension), RLE (5/5 in Hip flexion, Knee Flexion) Labs Lab Results: Intake & Output 07/13/17 07/14/17 07/15/17 07/16/17 23:59 23:59 23:59 23:59 Intake Total 990 700 600 380 Balance 990 700 600 380 Weight 110 lb 9.6 oz 112 lb 111 lb 6.4 oz Laboratory Results - last 24 hr 07/16/17 07/16/17 07/16/17 07:22 07:22 07:45 WBC 6.3 RBC 3.06 L Hgb 10.6 L Hct 32.0 L MCV 104.6 H MCH 34.7 H MCHC 33.1 RDW 13.4 Plt Count 205 MPV 8.1 PT with INR 19.20 H INR 1.70 H D Sodium 139 Potassium 3.7 Chloride 104 Carbon Dioxide 28 Anion Gap 7 L BUN 69 H Creatinine 2.9 H Random Glucose 92 Calcium 8.0 L Phosphorus 3.7 D Magnesium 2.1 Problem List - Problems (1) CHF (congestive heart failure) Code(s): I50.9 - HEART FAILURE, UNSPECIFIED Qualifiers: Congestive heart failure type: systolic Congestive heart failure chronicity : acute on chronic Qualified Code(s): I50.23 - Acute on chronic systolic ( congestive) heart failure Assessment/Plan 87 y/o female w/ PMHXx of AFib (On Comadin at home), CHF s/p Biventricular Pacemaker, HTN, HLD, Hypothyroidism, CKD and Angina and CAD s/p PCI and Stent placement was admitted yesterday to telemetry inpatient service due to Acute on Chronic Systolic Heart failure and Upper GI Bleed. 1. Acute of Chronic Systolic Heart Failure - SOB has improved with 2L on NC and bed head height elevated 30-45 degrees - Lower extremity Edema has resolved - Hold Lasix 40mg IV BID until Cr function returns to baseline; Will consider discharge tomorrow if Cr returns to Baseline - Continue Metoprolol Tartrate 50 mg PO BID - Continue Isosorbide Mononitrate 15 mg PO Daily - Daily Weights, Strict I&O's - Tele monitoring - Ordered Pre- and Post-exercise Pulse Ox as patient had decreased exercise capacity with Respiratory therapist 2. Melana likely due to Upper GI Bleed in the setting of Coumadin use - INR on 07/15 was 3.35, Repeat INR today was 1.7. Continue to monitor INR - Coumadin 5mg held pending EGD tmrw; will resume Coumadin therapy once EGD completed - Continue Protonix gtt - GI Consult: Appreciate Recommendations - NPO after Midnight 3. History of Atrial Fibrillation - Continue Metoprolol Tartrate 50 mg PO BID - Hold Coumadin 5mg 4. HTN - Became hypotensive over the weekend which has since resolved - Continue Metoprolol Tartrate 50 mg PO BID - Continue Isosorbide Mononitrate 15 mg PO Daily - Hold Losartan potassium 25 mg PO Daily until BUN and Cr returns to baseline 5. CECILIA on CKD 2/2 Volume Depletion - BUN has improved from 73 to 69, Cr has improved from 3.1 to 2.9 - Hydrated x 3 hours - Hold Losartan potassium 25 mg PO Daily 6. Hyperkalemia - Repeat K+ today was 3.7 - Continue to monitor 7. DVT PPx - SCDs Dispo: Continue to monitor on Telemetry
--- NOTE | 2017-07-16 12:22 | PN ---
Progress Note, Physician History of Present Illness: No events overnight. comfortable. - Current Medication List Current Medications: Active Medications Acetaminophen (Tylenol -) 650 mg PO Q6H PRN PRN Reason: FEVER OR PAIN Last Admin: 07/15/17 21:32 Dose: 650 mg Isosorbide Mononitrate (Imdur -) 15 mg PO DAILY [facility] Last Admin: 07/16/17 09:44 Dose: 15 mg Levothyroxine Sodium (Synthroid -) 100 mcg PO DAILY@0700 [facility] Last Admin: 07/16/17 06:16 Dose: 100 mcg Metoprolol Tartrate (Lopressor -) 25 mg PO BID [facility] Last Admin: 07/16/17 09:44 Dose: 25 mg Pantoprazole Sodium (Protonix -) 40 mg PO BID [facility] Last Admin: 07/16/17 09:44 Dose: 40 mg - Objective Vital Signs: Vital Signs Temperature 97.2 F L 07/16/17 10:00 Pulse Rate 81 07/16/17 10:41 Respiratory Rate 18 07/16/17 10:00 Blood Pressure 121/59 07/16/17 10:00 O2 Sat by Pulse Oximetry (%) 96 07/16/17 10:41 Constitutional: Yes: No Distress, Calm Eyes: Yes: Conjunctiva Clear HENT: Yes: Atraumatic Neck: Yes: Supple Cardiovascular: Yes: Regular Rate and Rhythm Respiratory: Yes: Regular Neurological: Yes: Alert, Oriented Labs: CBC, BMP 07/16/17 07:22 07/16/17 07:22 INR, PTT INR 1.70 (0.82-1.09) H D 07/16/17 07:45 Laboratory Results - last 24 hr 07/16/17 07/16/17 07/16/17 07:22 07:22 07:45 WBC 6.3 RBC 3.06 L Hgb 10.6 L Hct 32.0 L MCV 104.6 H MCH 34.7 H MCHC 33.1 RDW 13.4 Plt Count 205 MPV 8.1 PT with INR 19.20 H INR 1.70 H D Sodium 139 Potassium 3.7 Chloride 104 Carbon Dioxide 28 Anion Gap 7 L BUN 69 H Creatinine 2.9 H Random Glucose 92 Calcium 8.0 L Phosphorus 3.7 D Magnesium 2.1 Problem List - Problems (1) CHF (congestive heart failure) Code(s): I50.9 - HEART FAILURE, UNSPECIFIED Qualifiers: Qualified Code(s): I50.23 - Acute on chronic systolic (congestive) heart failure (2) Heme positive stool Code(s): R19.5 - OTHER FECAL ABNORMALITIES (3) Supratherapeutic INR Code(s): R79.1 - ABNORMAL COAGULATION PROFILE Assessment/Plan Clinicaly much better Plan EGD and colnoscopy for heme positives tools and need for anticoagulation PPI Low salt diet
[2017-07-16] MEDS ORDERED: BISACODYL 5 MG TABLET.DR (FP) PO ONE (13:30)
[2017-07-16] MEDS ORDERED: FLU VACCINE QUAD 60 MCG/0.5 ML (MDV 17-18) IM ONE (15:00)
--- NOTE | 2017-07-16 15:45 | PN ---
Teaching Attending Note Name of Resident: Carlitos Bearden ATTENDING PHYSICIAN STATEMENT I saw and evaluated the patient. I reviewed the resident's note and discussed the case with the resident. I agree with the resident's findings and plan as documented. SUBJECTIVE: No fever or chills, has no SOB, but per PT she has SOB and fatigue with ambulation. no BM in 3 days. OBJECTIVE: NAD, awake , alert and oriented x3. CV: RRR, 3/6/ SM at LLSB and apex . No JVD Lungs: CTAB Abd: soft, NT, ND , NL BS Ext: no edema today. DP 2+ b/l ASSESSMENT AND PLAN: 87 y/o lady with h/o CHF, HTN, CAD, PCI, s/p Pacemaker , A fib, DM, hypothyroidism, CKD on HD previously and ther medical problems who presented with SOB and melena. 1- Acute on chronic Systolic heart failure . looks euvolemic , BP improved - cont to hold diuresis - hold losartan and cont decreased dose of BB with holding parameters. probably can increase BB again tomorrow. - check pre-post ambulatory pulse ox 2- Melena: likely due to Upper GI bleed in setting of coumadin coagulopathy. stopped, stable HB - PO protonix - d/w Dr. Duncan, for EGD tomorrow 3- H/O A fib: - cont BB at a lower dose . tele reviewed paced rhythm , no events - INR 1.7. plan for EGD tomorrow. INR is expected to decrease further tomorrow. will give coumadin tonight , which will have effect probably on Sunday and will not affect his procedure tomorrow 4-Mild hyperkalemia: resolved 5- HTN: Hypotension resolved - cont to hold Losartan due to CECILIA - Cont decreased dose of Imudr for now 6- CECILIA o n CKD : probably form volume depletion after diuresis - hold losartan - monitor HLOC
[2017-07-16] MEDS ORDERED: PEG 3350/NA SULF BICARB CL/KCL 4000 ML SOLN.RECON PO ONE (18:00)
[2017-07-16] MEDS: WARFARIN NA 5 MG TABLET (UD) PO SCH (18:11)
--- NOTE | 2017-07-16 18:54 | PN ---
Progress Note (short form) - Note Progress Note: 87 year old female admitted with CHF, known case of CAD, s/p PCI/stenting, severe LV systolic dysfunction, permanent atrial fib. s/p ICD/DOG LICENSER and hypertension. No further SOB, no chest pain or discomfort. Active Medications Generic Name Dose Route Start Last Admin Trade Name Freq PRN Reason Stop Dose Admin Acetaminophen 650 mg 07/15/17 00:20 07/15/17 21:32 Tylenol - PO 650 mg Q6H PRN Administration FEVER OR PAIN Isosorbide Mononitrate 15 mg 07/15/17 13:46 07/16/17 09:44 Imdur - PO 15 mg DAILY DAVINA Administration Levothyroxine Sodium 100 mcg 07/15/17 07:00 07/16/17 06:16 Synthroid - PO 100 mcg DAILY@0700 [facility] Administration Metoprolol Tartrate 25 mg 07/15/17 13:40 07/16/17 09:44 Lopressor - PO 25 mg BID DAVINA Administration Pantoprazole Sodium 40 mg 07/13/17 10:00 07/16/17 09:44 Protonix - PO 40 mg BID DAVINA Administration Warfarin Sodium 5 mg 07/16/17 18:00 07/16/17 18:11 Coumadin - PO Not Given DAILY@1800 [facility] 87 year old female in no acute distress, no pallor or cyanosis. Last Vital Signs Temp Pulse Resp BP Pulse Ox 97.3 F L 80 16 118/55 96 07/16/17 14:47 07/16/17 15:42 07/16/17 14:47 07/16/17 14:47 07/16/17 15:42 Intake & Output 07/13/17 07/14/17 07/15/17 07/16/17 23:59 23:59 23:59 23:59 Intake Total 990 700 600 730 Balance 990 700 600 730 Weight 110 lb 9.6 oz 112 lb 111 lb 6.4 oz NECK: Supple, no JVD, carotids equal, no bruits. HEART:PMI in the 5th ICS, S1 & S2 are normal grade II/ apical systolic murmur , no gallops. LUNGS, Clear. ABDOMEN: Soft, nontender, no organomegaly. EXTREMITIES: No edema or calf tenderness. CBC, BMP 07/16/17 07:22 07/16/17 07:22 IMPRESSION: 1. CHF, resolving. 2. CAD, s/p PCI/ stenting, stable angina pectoris. 3. CKD. 4. Hypertension. 5. Permanent atrial fib. 6. S/P ICD/DOG LICENSER. 7. Anemia. RECOMMENDATIONS: 1. Current therapy. 2 Increase ambulation 3. F/U CBE and BMP.
--- NOTE | 2017-07-16 19:12 | PN ---
Physical Exam: SUBJECTIVE: Patient seen and examined. Feels breathing has improved. No fever, chill, CP, abdominal pain. Last BM 3 days ago. OBJECTIVE: Vital Signs Period Temp Pulse Resp BP Sys/Maciel Pulse Ox Last 24 Hr 97.2 F-98.1 F 80-81 16-18 98-132/44-66 96-98 GENERAL: aox3, nad ENT: moist mucous membranes LUNGS: CTAB HEART: rrr, normal s1/s2, no m/r/g ABDOMEN: Soft, ntnd, normoactive bowel sounds EXTREMITIES: 2+ DP, wwp, no edema NEUROLOGICAL: CN II-XII grossly intact. Normal speech CBC, BMP 07/16/17 07:22 07/16/17 07:22 Hepatic Panel Total Bilirubin 1.0 mg/dL (0.2-1.0) D 07/14/17 07:30 AST 21 U/L (15-37) D 07/14/17 07:30 ALT 17 U/L (12-78) 07/14/17 07:30 Alkaline Phosphatase 88 U/L (45-117) 07/14/17 07:30 Albumin 3.5 g/dl (3.4-5.0) 07/14/17 07:30 INR, PTT INR 1.70 (0.82-1.09) H D 07/16/17 07:45 Active Medications Acetaminophen (Tylenol -) 650 mg PO Q6H PRN PRN Reason: FEVER OR PAIN Last Admin: 07/15/17 21:32 Dose: 650 mg Isosorbide Mononitrate (Imdur -) 15 mg PO DAILY [facility] Last Admin: 07/16/17 09:44 Dose: 15 mg Levothyroxine Sodium (Synthroid -) 100 mcg PO DAILY@0700 [facility] Last Admin: 07/16/17 06:16 Dose: 100 mcg Metoprolol Tartrate (Lopressor -) 25 mg PO BID [facility] Last Admin: 07/16/17 09:44 Dose: 25 mg Pantoprazole Sodium (Protonix -) 40 mg PO BID [facility] Last Admin: 07/16/17 09:44 Dose: 40 mg ASSESSMENT/PLAN: 87yo woman PMH of Afib (Coumadin held), CHF, hypothyroidism, ESRD, and CAD (PCI/ stenting), s/p pacemaker who presented with SOB and melena. #Acute on chronic CHF - Echo w/ moderate hypokinesis of LV, mod PH (50-6mmHg) -Cardiology consulted -Strict I&Os, daily weights -Hold Lasix due to CECILIA -Hold Losartan due to CECILIA -Imdur 15mg PO daily (hold SBP<110) -Lopressor 25mg PO BID #melena, suspect UGIB - H&H stable, no e/o active bleeding -EGD and colonoscopy tomorrow, NPO after midnight -Protonix 40mg PO BID #Afib - rate controlled -Lopressor 25mg PO BID -Hold Coumadin - will reassess restarting after EGD/C-scope tomorrow -Repeat INR in AM #HTN, hypotensive this weekend, now improved with Imdur and BB decreased with holding parameters -Imdur 15mg PO daily (hold SBP <110) -Metoprolol 25mg PO BID (hold SBP<105, HR<60) #CECILIA on CKD -Hold Losartan and further diuresis #Hyperkalemia, resolving -Daily BMPs #Hypothyroidism -Continue home synthroid #Depression -Continue home Lexapro 10mg PO #FEN: Hold IVFs/ lytes wnl/ Cardiac diet #PPX -DVT - INR 1.7 -GI - Protonix daily #PT - Pre and post O2 tomorrow Dispo: Anticipate 24-48hours if no significant findings on EGD FULL Code case d/w Dr. Isaiah Schuler MD PGY-1 - Internal Medicine Visit type - Emergency Visit Emergency Visit: No - New Patient This patient is new to me today: No - Critical Care Critical Care patient: No
[2017-07-16] MEDS: ACETAMINOPHEN 325 MG TABLET (FP) PO PRN (22:32)
[2017-07-17] MEDS: LEVOTHYROXINE NA 100 MCG TABLET (FP) PO SCH ×2 (06:26→10:22)
[2017-07-17] MEDS ORDERED: PHENYLEPHRINE HCL 10 MG/1 ML SINGLE DOSE VIAL ONE (08:00)
[2017-07-17] MEDS ORDERED: PROPOFOL 20 ML ONE (08:00)
[2017-07-17 08:16] LABS: ANION GAP 12 (8-16); BLOOD UREA NITROGEN 48 mg/dL (7-18); CALCIUM 8.6 mg/dL (8.5-10.1); CHLORIDE 103 mmol/L (98-107); CO2 27 mmol/L (21-32); GLUCOSE,RANDOM 93 mg/dL (74-106); INR 1.42 (0.82-1.09); POTASSIUM 3.4 mmol/L (3.5-5.1); PROTHROMBIN TIME (PATIENT) 16.1 SEC (9.98-11.88); SODIUM 142 mmol/L (136-145)
[2017-07-17 08:18] LABS: CREATININE 2.2 mg/dL (0.55-1.02)
--- NOTE | 2017-07-17 08:46 | PROC ---
Endoscopy Procedure Endoscopy procedure completed. Please see scanned procedure report. Mild diverticulosis of the sigmoid colon, small internal hemorrhoids, otherwise normal colonoscopy. Unable to traverse UES, no obvious intraluminal lesions, or mucosal defects. Modified barium swallow/esophagogram pureed diet
[2017-07-17] MEDS: ISOSORBIDE MONONITRATE 30 MG TAB.SR.24H (FP) PO SCH (10:22)
[2017-07-17] MEDS: METOPROLOL TARTRATE 25 MG TABLET (FP) PO SCH (10:22)
[2017-07-17] MEDS: PANTOPRAZOLE 40 MG TABLET (FP) PO SCH ×2 (10:23→21:53)
--- NOTE | 2017-07-17 11:07 | PN ---
Progress Note, SLASHER TENDER HELPER - Note Progress Note: Per GI: Mild diverticulosis of the sigmoid colon, small internal hemorrhoids, otherwise normal colonoscopy. Unable to traverse UES, no obvious intraluminal lesions, or mucosal defects. Modified barium swallow/esophagogram For mbs today.
--- NOTE | 2017-07-17 15:17 | PN ---
Physical Exam: 24H Events: yesterday - no acute events O/N - bowel prep, no melena or shilo blood noted in stool AM - C-scope normal (only mild sigmoid diverticulosis & small internal hemorrhoids); EGD - unable to pass UES; Modified barium swallow/esophagogram revealed no abnormalities SUBJECTIVE: Patient seen and examined. Sob improved, denies CP, abdominal pain, fever, chills. OBJECTIVE: Vital Signs Period Temp Pulse Resp BP Sys/Maciel Pulse Ox Last 24 Hr 97.5 F-98.4 F 73-82 16-20 100-156/36-71 96-100 GENERAL: lying comfortable in bed, nad, aaox3 HEENT: moist mucous membranes LUNGS: CTAB HEART: rrr, normal s1/s2, no m/r/g ABDOMEN: Soft, ntnd, normoactive bowel sounds EXTREMITIES: 2+ DP, wwp, no edema NEUROLOGICAL: CN II-XII grossly intact. Normal speech CBC, BMP 07/16/17 07:22 07/17/17 06:00 Hepatic Panel Total Bilirubin 1.0 mg/dL (0.2-1.0) D 07/14/17 07:30 AST 21 U/L (15-37) D 07/14/17 07:30 ALT 17 U/L (12-78) 07/14/17 07:30 Alkaline Phosphatase 88 U/L (45-117) 07/14/17 07:30 Albumin 3.5 g/dl (3.4-5.0) 07/14/17 07:30 INR, PTT INR 1.42 (0.82-1.09) H 07/17/17 06:00 Active Medications Acetaminophen (Tylenol -) 650 mg PO Q6H PRN PRN Reason: FEVER OR PAIN Last Admin: 07/16/17 22:32 Dose: 650 mg Isosorbide Mononitrate (Imdur -) 15 mg PO DAILY [facility] Last Admin: 07/17/17 10:22 Dose: 15 mg Levothyroxine Sodium (Synthroid -) 100 mcg PO DAILY@0700 [facility] Last Admin: 07/17/17 10:22 Dose: 100 mcg Metoprolol Tartrate (Lopressor -) 50 mg PO BID [facility] Pantoprazole Sodium (Protonix -) 40 mg PO BID [facility] Last Admin: 07/17/17 10:23 Dose: 40 mg ASSESSMENT/PLAN: 87yo woman PMH of Afib (Coumadin held), CHF, hypothyroidism, ESRD, and CAD (PCI/ stenting), s/p pacemaker who presented with SOB and melena. #Acute on chronic CHF - Echo w/ moderate hypokinesis of LV, mod PH (50-6mmHg) -Cardiology consulted -Strict I&Os, daily weights -Hold Lasix due to CECILIA -Hold Losartan due to CECILIA -Imdur 15mg PO daily (hold SBP<110) -Lopressor 50mg PO BID #melena, suspect UGIB - H&H stable, no e/o active bleeding, repeat stool occult negative -EGD unable to be completed, however MBS normal and repeat stool occult negative , will not repeat EGD -GI okay with restarting Coumadin -Protonix 40mg PO BID #Afib - rate controlled -Lopressor 50mg PO BID -Start Coumadin 5mg tonight -Repeat INR in AM #HTN -Imdur 15mg PO daily (hold SBP <110) -Metoprolol 25mg PO BID increased to home dose of 50mg BID (will hold if SBP<105 , HR<60) #CECILIA on CKD, resolving -Hold Losartan and further diuresis #Hypothyroidism -Continue home synthroid #Depression -Continue home Lexapro 10mg PO #FEN: Hold IVFs/ Replete phosphate/ Cardiac diet #PPX -DVT - INR 1.42 -GI - Protonix daily #PT - Pre and post O2 today Dispo: plann for home tomorrow with VNS FULL Code case d/w Dr. Isaiah Schuler MD PGY-1 - Internal Medicine Visit type - Emergency Visit Emergency Visit: No - New Patient This patient is new to me today: No - Critical Care Critical Care patient: No
--- NOTE | 2017-07-17 15:41 | MSN ---
Progress Note (SOAP) - Subjective Chief Complaint: SOB, Melena History of Present Illness: Patient says she slept well. Feeling much better since her admission. Admits she only feels some weakness with walking. She admits most of her SOB has resolved and that she is breathing better. Had a BM yesterday. Denies any urinary sx's. Denies any fevers, chills, chest pain, palpitations, nausea or vomiting. No acute events overnight as per nursing. - Current Medications Current Medications: Active Medications Acetaminophen (Tylenol -) 650 mg PO Q6H PRN PRN Reason: FEVER OR PAIN Last Admin: 07/16/17 22:32 Dose: 650 mg Isosorbide Mononitrate (Imdur -) 15 mg PO DAILY [facility] Last Admin: 07/17/17 10:22 Dose: 15 mg Levothyroxine Sodium (Synthroid -) 100 mcg PO DAILY@0700 [facility] Last Admin: 07/17/17 10:22 Dose: 100 mcg Metoprolol Tartrate (Lopressor -) 50 mg PO BID [facility] [place] Pantoprazole Sodium (Protonix -) 40 mg PO BID [facility] Last Admin: 07/17/17 10:23 Dose: 40 mg Warfarin Sodium (Coumadin -) 5 mg PO DAILY@1800 [facility] [place] Last Admin: 07/16/17 18:11 Dose: Not Given - Objective Vital Signs: Vital Signs Temperature 97.5 F L 07/17/17 14:41 Pulse Rate 81 07/17/17 14:41 Respiratory Rate 18 07/17/17 14:41 Blood Pressure 147/71 07/17/17 14:41 O2 Sat by Pulse Oximetry (%) 100 07/17/17 09:05 Constitutional: Yes: No Distress, Calm Cardiovascular: Yes: Regular Rate and Rhythm, S1, S2 Respiratory: Yes: CTA Bilaterally, On Nasal O2 (1.5 L) Gastrointestinal: Yes: Normal Bowel Sounds, Soft. No: Distention, Tenderness Extremities: Yes: Other (Tenderness along the anterior aspect of her Lower extremities B/L) Peripheral Pulses: Left Radial: 2+, Right Radial: 2+, Left Doralis Pedis: 1+, Right Dorsalis Pedis: 1+ Edema: No Neurological: Yes: Alert, Oriented, Cran Nerves II-XII Intact Labs Lab Results: CBC, BMP 07/16/17 07:22 07/17/17 06:00 Problem List - Problems (1) CHF (congestive heart failure) Code(s): I50.9 - HEART FAILURE, UNSPECIFIED Qualifiers: Congestive heart failure type: systolic Congestive heart failure chronicity : acute on chronic Qualified Code(s): I50.23 - Acute on chronic systolic ( congestive) heart failure Assessment/Plan 87 y/o female w/ PMHXx of AFib (On Comadin at home), CHF s/p Biventricular Pacemaker, HTN, HLD, Hypothyroidism, CKD and Angina and CAD s/p PCI and Stent placement was admitted yesterday to telemetry inpatient service due to Acute on Chronic Systolic Heart failure and Upper GI Bleed. 1. Acute of Chronic Systolic Heart Failure - SOB has improved with 1.5-2L on NC and bed head height elevated 30-45 degrees - Lower extremity Edema has resolved - Hold Lasix 40mg IV BID until Cr function returns to baseline; Cr improved from 3.1 to 2.2 - Increase Metoprolol Tartrate from 25 to 50 mg PO BID - Continue Isosorbide Mononitrate 15 mg PO Daily; will consider increasing tomorrow to 30mg PO Daily if her vitals can tolerate - Daily Weights, Strict I&O's - Tele monitoring - Ordered Pre- and Post-exercise Pulse Ox as patient had decreased exercise capacity with Respiratory therapist 2. Melana likely due to Upper GI Bleed in the setting of Coumadin use - INR today was 1.42. Continue to monitor INR - Coumadin 5mg held today due to EGD; Discussed with GI and Stool occult pending now, If negative will restart, if positive GI will scope again tomorrow - Continue Protonix gtt - EGD 07/17: Diverticulosis in Sigmoid colon - Barium Swallow: Normal swallow with delayed esophageal emptying. Will follow Speech therapys rec's. 3. History of Atrial Fibrillation - Continue Metoprolol Tartrate 50 mg PO BID - Hold Coumadin 5mg 4. HTN - Continue Metoprolol Tartrate 50 mg PO BID - Continue Isosorbide Mononitrate 15 mg PO Daily - Hold Losartan potassium 25 mg PO Daily until BUN and Cr returns to baseline 5. CECILIA on CKD 2/2 Volume Depletion - BUN has improved from 69 to 48, Cr has improved from 2.9 to 2.2 - Hold Losartan potassium 25 mg PO Daily 6. Hyperkalemia - Repeat K+ today was 3.4 - Continue to monitor 7. DVT PPx - SCDs Dispo: Will discuss D/C options with case packer and sealer
[2017-07-17] MEDS: WARFARIN NA 5 MG TABLET (UD) PO SCH (17:53)
--- NOTE | 2017-07-17 18:07 | PN ---
Progress Note (short form) - Note Progress Note: 87 year old female admitted with CHF, known case of CAD, s/p PCI/stenting, severe LV systolic dysfunction, permanent atrial fib. s/p ICD/FRENCH FOLDER. OOB in a chair, no SOB reported, no chest pain or discomfort. tolerating therapy. 87 year old female in no acute distress, no pallor or cyanosis. Last Vital Signs Temp Pulse Resp BP Pulse Ox 97.5 F L 81 18 147/71 100 07/17/17 14:41 07/17/17 14:41 07/17/17 14:41 07/17/17 14:41 07/17/17 09:05 Intake & Output 07/14/17 07/15/17 07/16/17 07/17/17 23:59 23:59 23:59 23:59 Intake Total 700 477 043 3534 Balance 700 158 669 9420 Weight 110 lb 9.6 oz 112 lb 111 lb 6.4 oz 111 lb NECK: Supple, no JVD, carotids equal, no bruits. HEART:PMI in the 5th ICS, S1 & S2 are normal grade II/ apical systolic murmur , no gallops. LUNGS, Clear. ABDOMEN: Soft, nontender, no organomegaly. EXTREMITIES: No edema or calf tenderness. CBC, BMP 07/16/17 07:22 07/17/17 06:00 1. CHF, resolved 2. CAD, s/p PCI/ stenting, stable angina pectoris. 3. CKD. 4. Hypertension. 5. Permanent atrial fib. 6. S/P ICD/FRENCH FOLDER. 7. Anemia. 8. Hypokalemia. RECOMMENDATIONS: 1. Current therapy. 2 Increase ambulation. 3. F/U CBC and BMP. 4. Correction of K+
[2017-07-17] MEDS ORDERED: POTASSIUM CHLORIDE ORAL LIQUID 20 MEQ/15 ML PO ONE (18:14)
--- NOTE | 2017-07-17 18:24 | PN ---
Teaching Attending Note Name of Resident: Sherri Schuler ATTENDING PHYSICIAN STATEMENT I saw and evaluated the patient. I reviewed the resident's note and discussed the case with the resident. I agree with the resident's findings and plan as documented. SUBJECTIVE: No fever or chills, no OSB OBJECTIVE: NAD, awake , alert and oriented x3. CV: RRR, 3/6/ SM at LLSB and apex . No JVD Lungs: CTAB Abd: soft, NT, ND , NL BS Ext: no edema today. DP 2+ b/l ASSESSMENT AND PLAN: 87 y/o lady with h/o CHF, HTN, CAD, PCI, s/p Pacemaker , A fib, DM, hypothyroidism, CKD on HD previously and ther medical problems who presented with SOB and melena. 1- Acute on chronic Systolic heart failure . looks euvolemic , BP improved - cont to hold diuresis - hold losartan and increase dose of BB to 50 again - check pre-post ambulatory pulse ox 2- Melena: endoscopy was not able to pass the GE junction , and colonoscopy was unremarkable OB was sent , d/w Dr. Duncan, if OB neg can resume AC barium swalow noted 3- H/O A fib: - cont BB as above - cont to hold coumadin 4- HTN: Hypotension resolved - cont to hold Losartan due to CECILIA - Cont decreased dose of Imudr for now, and increase BB as above - might be able to increase imdur to 30 in am 6- CECILIA o n CKD : probably form volume depletion after diuresis - hold losartan - monitor HLOC continued PT :
[2017-07-17] MEDS ORDERED: POTASSIUM CHLORIDE TABS 20 MEQ TABLET.ER (FP) PO ONE (18:30)
[2017-07-17] MEDS ORDERED: MELATONIN 5 MG TABLETS PO ONE (21:18)
[2017-07-17] MEDS: ACETAMINOPHEN 325 MG TABLET (FP) PO PRN (21:53)
[2017-07-17] MEDS: METOPROLOL TARTRATE 50 MG TABLET (FP) PO SCH (21:53)
[2017-07-18] MEDS: LEVOTHYROXINE NA 100 MCG TABLET (FP) PO SCH (06:00)
[2017-07-18 08:09] LABS: ADD RBC MORPHOLOGY YES; HEMATOCRIT 31.9 % (32.4-45.2); HEMOGLOBIN 10.3 GM/dL (10.7-15.3); MCH 34.1 pg (25.7-33.7); MCHC 32.4 g/dl (32.0-36.0); MEAN CELL VOLUME 105.2 fl (80-96); MEAN PLT VOLUME 8.2 fl (7.5-11.1); PLATELET COUNT 208 K/MM3 (134-434); RBC 3.03 M/mm3 (3.60-5.2); RDW 13.3 % (11.6-15.6); WHITE BLOOD COUNT 6.5 K/mm3 (4.0-10.0)
--- NOTE | 2017-07-18 08:09 | MSN ---
Progress Note (SOAP) - Subjective Chief Complaint: SOB, Melena History of Present Illness: Patient slept well overnight. Says she is feeling a little weak but still much better since her admission. Admits most of her SOB has resolved and that she is breathing better. Appetite intact, denies any nausea, vomiting, indigestion. Denies any urinary sx's. Denies any fevers, chills, chest pain. No acute events overnight as per nursing. - Current Medications Current Medications: Active Medications Acetaminophen (Tylenol -) 650 mg PO Q6H PRN PRN Reason: FEVER OR PAIN Last Admin: 07/17/17 21:53 Dose: 650 mg Isosorbide Mononitrate (Imdur -) 15 mg PO DAILY [facility] Last Admin: 07/17/17 10:22 Dose: 15 mg Levothyroxine Sodium (Synthroid -) 100 mcg PO DAILY@0700 [facility] Last Admin: 07/18/17 06:00 Dose: 100 mcg Metoprolol Tartrate (Lopressor -) 50 mg PO BID [facility] Last Admin: 07/17/17 21:53 Dose: 50 mg Pantoprazole Sodium (Protonix -) 40 mg PO BID [facility] Last Admin: 07/17/17 21:53 Dose: 40 mg - Objective Vital Signs: Vital Signs Temperature 98.7 F 07/18/17 06:00 Pulse Rate 80 07/18/17 06:00 Respiratory Rate 18 07/18/17 06:00 Blood Pressure 131/71 07/18/17 06:00 O2 Sat by Pulse Oximetry (%) 97 07/17/17 21:00 Constitutional: Yes: No Distress, Calm Eyes: Yes: EOM Intact, PERRL HENT: Yes: Other (Moist Oral Mucosa) Cardiovascular: Yes: Regular Rate and Rhythm, S1, S2 Respiratory: Yes: On Nasal O2 (1L), Rales (At the Bases; Much improved since admission, CTA in all other lobes) Gastrointestinal: Yes: Normal Bowel Sounds, Soft. No: Distention, Tenderness, Tenderness, Rebound, Vomiting Peripheral Pulses: Left Radial: 2+, Right Radial: 2+, Left Doralis Pedis: 1+, Right Dorsalis Pedis: 1+ Edema: No (LE Edema resolved) Neurological: Yes: Alert, Oriented, Cran Nerves II-XII Intact. No: Loss of Sensation (C5-T1 and L4-S1 Grossly intact), Numbness, Paresthesia, Weakness ...Motor Strength: Yes: LUE (5/5 in elbow Flexion and extension), LLE (5/5 in Knee Flexion and extension), RUE (5/5 in elbow Flexion and extension), RLE (5/5 in knee flexion and extension) Problem List - Problems (1) CHF (congestive heart failure) Code(s): I50.9 - HEART FAILURE, UNSPECIFIED Qualifiers: Congestive heart failure type: systolic Congestive heart failure chronicity : acute on chronic Qualified Code(s): I50.23 - Acute on chronic systolic ( congestive) heart failure Assessment/Plan 87 y/o female w/ PMHXx of AFib (On Comadin at home), CHF s/p Biventricular Pacemaker, HTN, HLD, Hypothyroidism, CKD and Angina and CAD s/p PCI and Stent placement was admitted on 07/12 to telemetry inpatient service due to Acute on Chronic Systolic Heart failure and Upper GI Bleed. 1. Acute of Chronic Systolic Heart Failure - SOB has improved with 1.5-2L on NC and bed head height elevated 30-45 degrees - Lower extremity Edema has resolved - Hold Lasix 40mg IV BID until Cr function returns to baseline; Cr improved from 2.2 to 1.9 - Continue Metoprolol Tartrate 50 mg PO BID - Continue Isosorbide Mononitrate 15 mg PO Daily - Daily Weights, Strict I&O's - Tele monitoring - Pre- and Post-exercise Pulse Ox were 95% 2. Melana likely due to Upper GI Bleed in the setting of Coumadin use - INR today was 1.50 - Started back on Coumadin 5mg yesterday night since her FOBT was negative - Continue to monitor INR until Therapeutic - Continue Protonix gtt 3. History of Atrial Fibrillation - Continue Metoprolol Tartrate 50 mg PO BID - Continue Coumadin 5mg 4. HTN - Continue Metoprolol Tartrate 50 mg PO BID - Continue Isosorbide Mononitrate 15 mg PO Daily - Hold Losartan potassium 25 mg PO Daily until BUN and Cr returns to baseline 5. CECILIA on CKD 2/2 Volume Depletion - BUN has improved from 48 to 38, Cr has improved from 2.2 to 1.9 - Hold Losartan potassium 25 mg PO Daily 6. Hyperkalemia - Resolved; K+ today was 4.0 7. DVT PPx - SCDs Dispo: Will discuss D/C once INR reaches therapeutic levels
[2017-07-18 08:52] LABS: ALBUMIN 2.9 g/dl (3.4-5.0); ANION GAP 9 (8-16); BLOOD UREA NITROGEN 38 mg/dL (7-18); CALCIUM 8.3 mg/dL (8.5-10.1); CHLORIDE 106 mmol/L (98-107); CO2 28 mmol/L (21-32); GLUCOSE,RANDOM 89 mg/dL (74-106); SGPT/ALT 13 U/L (12-78); SODIUM 143 mmol/L (136-145)
[2017-07-18 08:57] LABS: ALK PHOS 78 U/L (45-117); BILIRUBIN,TOTAL 0.7 mg/dL (0.2-1.0); CREATININE 1.9 mg/dL (0.55-1.02); SGOT/AST 12 U/L (15-37); TOT PROT 5.6 g/dl (6.4-8.2)
[2017-07-18] MEDS: METOPROLOL TARTRATE 50 MG TABLET (FP) PO SCH ×2 (10:00→22:05)
[2017-07-18] MEDS: PANTOPRAZOLE 40 MG TABLET (FP) PO SCH ×2 (10:00→22:05)
[2017-07-18] MEDS: ISOSORBIDE MONONITRATE 30 MG TAB.SR.24H (FP) PO SCH (10:00)
--- NOTE | 2017-07-18 10:21 | PN ---
Progress Note, Physician History of Present Illness: No events overnight. comfortable. - Current Medication List Current Medications: Active Medications Acetaminophen (Tylenol -) 650 mg PO Q6H PRN PRN Reason: FEVER OR PAIN Last Admin: 07/17/17 21:53 Dose: 650 mg Isosorbide Mononitrate (Imdur -) 15 mg PO DAILY [facility] Last Admin: 07/18/17 10:00 Dose: 15 mg Levothyroxine Sodium (Synthroid -) 100 mcg PO DAILY@0700 [facility] Last Admin: 07/18/17 06:00 Dose: 100 mcg Metoprolol Tartrate (Lopressor -) 50 mg PO BID [facility] Last Admin: 07/18/17 10:00 Dose: 50 mg Pantoprazole Sodium (Protonix -) 40 mg PO BID [facility] Last Admin: 07/18/17 10:00 Dose: 40 mg - Objective Vital Signs: Vital Signs Temperature 97.4 F L 07/18/17 10:00 Pulse Rate 70 07/18/17 10:16 Respiratory Rate 18 07/18/17 10:00 Blood Pressure 133/61 07/18/17 10:00 O2 Sat by Pulse Oximetry (%) 98 07/18/17 10:16 Constitutional: Yes: No Distress, Calm Eyes: Yes: Conjunctiva Clear HENT: Yes: Atraumatic Neck: Yes: Supple Cardiovascular: Yes: Regular Rate and Rhythm Gastrointestinal: Yes: Soft. No: Melena, Rectal Bleeding, Tenderness, Vomiting Labs: CBC, BMP 07/18/17 05:35 07/18/17 05:35 INR, PTT INR 1.42 (0.82-1.09) H 07/17/17 06:00 Problem List - Problems (1) CHF (congestive heart failure) Code(s): I50.9 - HEART FAILURE, UNSPECIFIED Qualifiers: Congestive heart failure type: systolic Congestive heart failure chronicity : acute on chronic Qualified Code(s): I50.23 - Acute on chronic systolic ( congestive) heart failure (2) Heme positive stool Code(s): R19.5 - OTHER FECAL ABNORMALITIES (3) Supratherapeutic INR Code(s): R79.1 - ABNORMAL COAGULATION PROFILE (4) Dysphagia Code(s): R13.10 - DYSPHAGIA, UNSPECIFIED Assessment/Plan No events, Speech and Swallow evaluation appreciated. Will hold off on reattempting EGD while Hgb stable and stool hemoccult negative. A/C as per primary team. Monitor PPI Low salt diet
--- NOTE | 2017-07-18 11:05 | PN ---
Progress Note, HEALTH EDUCATION DIRECTOR - Note Progress Note: MBS reviewed with GI, pt and staff. Delayed esophageal emptying with risk of retrograde aspiration. Follow up by GI. Reviewed several small meals throughout the day, allowing time for the esoph to empty. Upright for at least an hour or two after meals, and no PO intake within 3 hour of bedtime.
[2017-07-18 11:23] LABS: ACANTHOCYTES 0; ANISOCYTOSIS 0; HELMET CELLS 0; HOWELL-JOLLY BODIES 0; MACROCYTOSIS 0; OVALOCYTE 0; PLATELET ESTIMATE NORMAL; SICKELED CELLS 0; TARGET CELLS 0; TEAR DROP CELLS 0; TOXIC GRANULATION 0
--- NOTE | 2017-07-18 12:05 | PN ---
Progress Note (short form) - Note Progress Note: 87 year old female admitted with CHF, known case of CAD, s/p PCI/stenting, severe LV systolic dysfunction, permanent atrial fib. s/p ICD/INDEPENDENT PRODUCER. No SOB reported, no chest pain or discomfort. tolerating therapy. Patient feels much better and states that she is to be discharged today. Active Medications Generic Name Dose Route Start Last Admin Trade Name Freq PRN Reason Stop Dose Admin Acetaminophen 650 mg 07/15/17 00:20 07/17/17 21:53 Tylenol - PO 650 mg Q6H PRN Administration FEVER OR PAIN Isosorbide Mononitrate 15 mg 07/15/17 13:46 07/18/17 10:00 Imdur - PO 15 mg DAILY [facility] Administration Levothyroxine Sodium 100 mcg 07/15/17 07:00 07/18/17 06:00 Synthroid - PO 100 mcg DAILY@0700 [facility] Administration Metoprolol Tartrate 50 mg 07/17/17 12:33 07/18/17 10:00 Lopressor - PO 50 mg BID [facility] Administration Pantoprazole Sodium 40 mg 07/13/17 10:00 07/18/17 10:00 Protonix - PO 40 mg BID [facility] Administration 87 year old female in no acute distress, no pallor or cyanosis. Last Vital Signs Temp Pulse Resp BP Pulse Ox 97.4 F L 70 18 133/61 98 07/18/17 10:00 07/18/17 10:16 07/18/17 10:00 07/18/17 10:00 07/18/17 10:16 NECK: Supple, no JVD, carotids equal, no bruits. HEART:PMI in the 5th ICS, S1 & S2 are normal grade II/ apical systolic murmur , no gallops. LUNGS, Clear. ABDOMEN: Soft, nontender, no organomegaly. EXTREMITIES: No edema or calf tenderness. CBC, BMP 07/18/17 05:35 07/18/17 05:35 Laboratory Results - last 24 hr 07/17/17 07/18/17 07/18/17 16:12 05:35 05:35 WBC 6.5 RBC 3.03 L Hgb 10.3 L Hct 31.9 L MCV 105.2 H MCH 34.1 H MCHC 32.4 RDW 13.3 Plt Count 208 MPV 8.2 Neutrophils % No Result Required. Lymphocytes % No Result Required. Sodium 143 Potassium 4.0 Chloride 106 Carbon Dioxide 28 Anion Gap 9 BUN 38 H D Creatinine 1.9 H Creat Clearance w eGFR 24.89 Random Glucose 89 Calcium 8.3 L Total Bilirubin 0.7 D AST 12 L D ALT 13 D Alkaline Phosphatase 78 Total Protein 5.6 L Albumin 2.9 L Stool Occult Blood Negative A: 1. CHF, resolved 2. Hypertension. 3. CKD. 4. CAD, s/p PCI/ stenting, stable angina pectoris. 5. Permanent atrial fib. 6. S/P ICD/INDEPENDENT PRODUCER. 7. Anemia. RECOMMENDATIONS: 1. Current therapy. 2. ICD/INDEPENDENT PRODUCER interrogation on outpatient basis. 3. Advised office follow up.
[2017-07-18 13:49] LABS: INR 1.5 (0.82-1.09)
--- NOTE | 2017-07-18 15:37 | PN ---
Physical Exam: SUBJECTIVE: Patient seen and examined. Sob improved, denies CP, abdominal pain, fever, chills. Eating and voiding well. OBJECTIVE: Vital Signs Period Temp Pulse Resp BP Sys/Maciel Pulse Ox Last 24 Hr 97.4 F-98.7 F 70-82 18-23 115-144/50-71 95-98 GENERAL: lying comfortable in bed, nad, aaox3 HEENT: moist mucous membranes LUNGS: CTAB HEART: rrr, normal s1/s2, no m/r/g ABDOMEN: Soft, ntnd, normoactive bowel sounds EXTREMITIES: 2+ DP, wwp, no edema NEUROLOGICAL: CN II-XII grossly intact. Normal speech CBC, BMP 07/18/17 05:35 07/18/17 05:35 Hepatic Panel Total Bilirubin 0.7 mg/dL (0.2-1.0) D 07/18/17 05:35 AST 12 U/L (15-37) L D 07/18/17 05:35 ALT 13 U/L (12-78) D 07/18/17 05:35 Alkaline Phosphatase 78 U/L (45-117) 07/18/17 05:35 Albumin 2.9 g/dl (3.4-5.0) L 07/18/17 05:35 INR, PTT INR 1.50 (0.82-1.09) H 07/18/17 12:23 ASSESSMENT/PLAN: 87yo woman PMH of Afib (Coumadin held), CHF, hypothyroidism, ESRD, and CAD (PCI/ stenting), s/p pacemaker who presented with SOB and melena. #Acute on chronic CHF - Echo w/ moderate hypokinesis of LV, mod PH (50-6mmHg) -Cardiology consulted -Strict I&Os, daily weights -Hold Lasix due to CECILIA -Hold Losartan due to CECILIA -Imdur 15mg PO daily (hold SBP<110) -Lopressor 50mg PO BID #melena, suspect UGIB - H&H stable, no e/o active bleeding, repeat stool occult negative -EGD unable to be completed, however MBS normal and repeat stool occult negative , will not repeat EGD -GI okay with restarting Coumadin -Protonix 40mg PO BID #Afib - rate controlled -Lopressor 50mg PO BID -Start Coumadin 5mg tonight -Repeat INR in AM #HTN -Imdur 15mg PO daily (hold SBP <110) -Continue home dose of Metoprolol 50mg BID (will hold if SBP<105, HR<60) #CECILIA on CKD, resolving (baseline ~1.7 in November 2014) -Hold Losartan and further diuresis #Hypothyroidism -Continue home synthroid #Depression -Continue home Lexapro 10mg PO #FEN: Hold IVFs/ lytes wnl / Cardiac diet #PPX -DVT - INR 1.5 -GI - Protonix daily #PT/OT -RT - oxygen saturation 95% on room air. no supplemental oxygen needed -PT - ambulated 35 feet w/o O2 Dispo: plan for d/c when INR, home w/ VNS FULL Code case d/w Dr. Deepa Schuler MD PGY-1 - Internal Medicine Visit type - Emergency Visit Emergency Visit: No - New Patient This patient is new to me today: No - Critical Care Critical Care patient: No
[2017-07-18] MEDS ORDERED: WARFARIN NA 5 MG TABLET (UD) PO SCH (18:00)
--- NOTE | 2017-07-18 19:34 | PN ---
Teaching Attending Note Name of Resident: Sherri Schuler ATTENDING PHYSICIAN STATEMENT I saw and evaluated the patient. I reviewed the resident's note and discussed the case with the resident. I agree with the resident's findings and plan as documented. SUBJECTIVE: Patient has no further bleeding. Feeling better with no acute distress. OBJECTIVE: Vital Signs Temperature 97.3 F L 07/18/17 18:55 Pulse Rate 80 07/18/17 18:55 Respiratory Rate 20 07/18/17 18:55 Blood Pressure 128/72 07/18/17 18:55 O2 Sat by Pulse Oximetry (%) 98 07/18/17 10:16 CBCD WBC 6.5 K/mm3 (4.0-10.0) 07/18/17 05:35 RBC 3.03 M/mm3 (3.60-5.2) L 07/18/17 05:35 Hgb 10.3 GM/dL (10.7-15.3) L 07/18/17 05:35 Hct 31.9 % (32.4-45.2) L 07/18/17 05:35 MCV 105.2 fl (80-96) H 07/18/17 05:35 MCHC 32.4 g/dl (32.0-36.0) 07/18/17 05:35 RDW 13.3 % (11.6-15.6) 07/18/17 05:35 Plt Count 208 K/MM3 (134-434) 07/18/17 05:35 MPV 8.2 fl (7.5-11.1) 07/18/17 05:35 CMP Sodium 143 mmol/L (136-145) 07/18/17 05:35 Potassium 4.0 mmol/L (3.5-5.1) 07/18/17 05:35 Chloride 106 mmol/L (98-107) 07/18/17 05:35 Carbon Dioxide 28 mmol/L (21-32) 07/18/17 05:35 Anion Gap 9 (8-16) 07/18/17 05:35 BUN 38 mg/dL (7-18) H D 07/18/17 05:35 Creatinine 1.9 mg/dL (0.55-1.02) H 07/18/17 05:35 Creat Clearance w eGFR 24.89 (>60) 07/18/17 05:35 Random Glucose 89 mg/dL (74-106) 07/18/17 05:35 Calcium 8.3 mg/dL (8.5-10.1) L 07/18/17 05:35 Total Bilirubin 0.7 mg/dL (0.2-1.0) D 07/18/17 05:35 AST 12 U/L (15-37) L D 07/18/17 05:35 ALT 13 U/L (12-78) D 07/18/17 05:35 Alkaline Phosphatase 78 U/L (45-117) 07/18/17 05:35 Total Protein 5.6 g/dl (6.4-8.2) L 07/18/17 05:35 Albumin 2.9 g/dl (3.4-5.0) L 07/18/17 05:35 CARDIAC ENZYMES Creatine Kinase 85 IU/L (26-192) 07/12/17 07:31 Troponin I 0.06 ng/ml (0.00-0.05) H 07/13/17 03:50 Current Medications Generic Name Dose Route Start Last Admin Trade Name Freq PRN Reason Stop Dose Admin Acetaminophen 650 mg 07/15/17 00:20 07/17/17 21:53 Tylenol - PO 650 mg Q6H PRN Administration FEVER OR PAIN Isosorbide Mononitrate 15 mg 07/15/17 13:46 07/18/17 10:00 Imdur - PO 15 mg DAILY DAVINA Administration Levothyroxine Sodium 100 mcg 07/15/17 07:00 07/18/17 06:00 Synthroid - PO 100 mcg DAILY@0700 DAVINA Administration Metoprolol Tartrate 50 mg 07/17/17 12:33 07/18/17 10:00 Lopressor - PO 50 mg BID DAVINA Administration Pantoprazole Sodium 40 mg 07/13/17 10:00 07/18/17 10:00 Protonix - PO 40 mg BID DAVINA Administration Warfarin Sodium 5 mg 07/18/17 18:00 07/18/17 18:00 Coumadin - PO 5 mg DAILY@1800 DAVINA Administration Home Medications Medication Instructions Recorded Acetaminophen [Tylenol] 650 mg PO PRN PRN 06/21/15 Furosemide [Lasix -] 40 mg PO DAILY 06/21/15 Isosorbide Mononitrate 15 mg PO DAILY 06/21/15 Levothyroxine [Synthroid -] 100 mcg PO DAILY 06/21/15 Losartan Potassium 25 mg PO DAILY 06/21/15 Metoprolol Tartrate 50 mg PO BID 06/21/15 Gabapentin 100 mg PO BID 07/12/17 Warfarin Sodium 5 mg PO 07/18/17 Laboratory Tests 07/13/17 07/14/17 07/15/17 06:30 07:30 07:45 INR 7.88 H* D 10.50 H* 3.35 H D 07/16/17 07/17/17 07/18/17 07:45 06:00 12: INR 1.70 H D 1.42 H 1.50 H PE: Chest: CTABL Heart: S1S2 positive abdomen: Soft, NT, NR, ND ext: Positive pulses, no edema Barium swallow: positive for dysmotility and mild reflux in the distal esophagus with taoerd narrowing of GE junstion ASSESSMENT AND PLAN: Patient is a 87 y/o lady with h/o CHF, HTN, CAD, PCI, s/p Pacemaker , A fib, DM , hypothyroidism, CKD on HD previously who presented to ED. with SOB and melena. # s/p Acute GI bleed ; Melena: s/p EGD was not able to pass the GE junction as per ,and colonoscopy was unremarkable ;As per if Occult blood is negative then resume AC , recommended high fiber diet. # Acute on chronic Systolic heart failure . BP improved , Lasix is on hold for now. hold losartan , continue Lopressor 50mg po bid , pre-post ambulatory pulse ox is 95% # H/O A fib: cont BB, on Coumadin with INR of 1.5, PT/INR in am # Hx of HTN: but was found to be Hypotension in the hospital, back to her baseline , contnube to hold Losartan due to CECILIA for now, will restart in aM - Cont ImDUR OF 15MG PER DAY FOR NOW. WILL RESTART 30MG IN AM # CECILIA o n CKD : hold losartan AND LASIX WILL RECHECK IN AM THE LEVELS dvt pX: cOUMADIN
[2017-07-18] MEDS ORDERED: MELATONIN 5 MG TABLETS PO ONE (21:20)
[2017-07-18] MEDS: ACETAMINOPHEN 325 MG TABLET (FP) PO PRN (22:04)
[2017-07-19] MEDS: LEVOTHYROXINE NA 100 MCG TABLET (FP) PO SCH (06:13)
[2017-07-19 07:19] LABS: HEMATOCRIT 32.3 % (32.4-45.2); HEMOGLOBIN 10.6 GM/dL (10.7-15.3); MCH 34.6 pg (25.7-33.7); MCHC 32.9 g/dl (32.0-36.0); MEAN PLT VOLUME 7.8 fl (7.5-11.1); PLATELET COUNT 217 K/MM3 (134-434); RBC 3.08 M/mm3 (3.60-5.2); RDW 13.4 % (11.6-15.6); WHITE BLOOD COUNT 6.6 K/mm3 (4.0-10.0)
[2017-07-19 07:46] LABS: INR 2.04 (0.82-1.09); PROTHROMBIN TIME (PATIENT) 23.1 SEC (9.98-11.88)
[2017-07-19 08:05] LABS: ALBUMIN 2.8 g/dl (3.4-5.0); ALK PHOS 75 U/L (45-117); ANION GAP 6 (8-16); BILIRUBIN,TOTAL 0.5 mg/dL (0.2-1.0); BLOOD UREA NITROGEN 33 mg/dL (7-18); CALCIUM 8.3 mg/dL (8.5-10.1); CHLORIDE 107 mmol/L (98-107); CO2 30 mmol/L (21-32); CREATININE 1.8 mg/dL (0.55-1.02); GLUCOSE,RANDOM 93 mg/dL (74-106); POTASSIUM 3.9 mmol/L (3.5-5.1); SGOT/AST 14 U/L (15-37); SGPT/ALT 11 U/L (12-78); SODIUM 143 mmol/L (136-145); TOT PROT 5.5 g/dl (6.4-8.2)
[2017-07-19 09:08] LABS: PLATELET ESTIMATE ADEQUATE
--- NOTE | 2017-07-19 09:21 | PN ---
Teaching Attending Note Name of Resident: Sherri Schuler ATTENDING PHYSICIAN STATEMENT I saw and evaluated the patient. I reviewed the resident's note and discussed the case with the resident. I agree with the resident's findings and plan as documented. SUBJECTIVE: Comfortable with no acute distress. OBJECTIVE: Vital Signs Temperature 97.5 F L 07/19/17 06:00 Pulse Rate 80 07/19/17 06:00 Respiratory Rate 18 07/19/17 06:00 Blood Pressure 146/63 07/19/17 06:00 O2 Sat by Pulse Oximetry (%) 95 07/18/17 21:00 CBCD WBC 6.6 K/mm3 (4.0-10.0) 07/19/17 06:30 RBC 3.08 M/mm3 (3.60-5.2) L 07/19/17 06:30 Hgb 10.6 GM/dL (10.7-15.3) L 07/19/17 06:30 Hct 32.3 % (32.4-45.2) L 07/19/17 06:30 MCV 105.0 fl (80-96) H 07/19/17 06:30 MCHC 32.9 g/dl (32.0-36.0) 07/19/17 06:30 RDW 13.4 % (11.6-15.6) 07/19/17 06:30 Plt Count 217 K/MM3 (134-434) 07/19/17 06:30 MPV 7.8 fl (7.5-11.1) 07/19/17 06:30 CMP Sodium 143 mmol/L (136-145) 07/19/17 06:30 Potassium 3.9 mmol/L (3.5-5.1) 07/19/17 06:30 Chloride 107 mmol/L (98-107) 07/19/17 06:30 Carbon Dioxide 30 mmol/L (21-32) 07/19/17 06:30 Anion Gap 6 (8-16) L 07/19/17 06:30 BUN 33 mg/dL (7-18) H 07/19/17 06:30 Creatinine 1.8 mg/dL (0.55-1.02) H 07/19/17 06:30 Creat Clearance w eGFR 26.49 (>60) 07/19/17 06:30 Random Glucose 93 mg/dL (74-106) 07/19/17 06:30 Calcium 8.3 mg/dL (8.5-10.1) L 07/19/17 06:30 Total Bilirubin 0.5 mg/dL (0.2-1.0) D 07/19/17 06:30 AST 14 U/L (15-37) L 07/19/17 06:30 ALT 11 U/L (12-78) L 07/19/17 06:30 Alkaline Phosphatase 75 U/L (45-117) 07/19/17 06:30 Total Protein 5.5 g/dl (6.4-8.2) L 07/19/17 06:30 Albumin 2.8 g/dl (3.4-5.0) L 07/19/17 06:30 CARDIAC ENZYMES Creatine Kinase 85 IU/L (26-192) 07/12/17 07:31 Troponin I 0.06 ng/ml (0.00-0.05) H 07/13/17 03:50 Current Medications Generic Name Dose Route Start Last Admin Trade Name Freq PRN Reason Stop Dose Admin Acetaminophen 650 mg 07/15/17 00:20 07/18/17 22:04 Tylenol - PO 650 mg Q6H PRN Administration FEVER OR PAIN Isosorbide Mononitrate 15 mg 07/15/17 13:46 07/18/17 10:00 Imdur - PO 15 mg DAILY DAVINA Administration Levothyroxine Sodium 100 mcg 07/15/17 07:00 07/19/17 06:13 Synthroid - PO 100 mcg DAILY@0700 [facility] Administration Metoprolol Tartrate 50 mg 07/17/17 12:33 07/18/17 22:05 Lopressor - PO 50 mg BID DAVINA Administration Pantoprazole Sodium 40 mg 07/13/17 10:00 07/18/17 22:05 Protonix - PO 40 mg BID DAVINA Administration Warfarin Sodium 5 mg 07/18/17 18:00 07/18/17 18:00 Coumadin - PO 5 mg DAILY@1800 [facility] Administration Home Medications Medication Instructions Recorded Acetaminophen [Tylenol] 650 mg PO PRN PRN 06/21/15 Furosemide [Lasix -] 40 mg PO DAILY 06/21/15 Isosorbide Mononitrate 15 mg PO DAILY 06/21/15 Levothyroxine [Synthroid -] 100 mcg PO DAILY 06/21/15 Losartan Potassium 25 mg PO DAILY 06/21/15 Metoprolol Tartrate 50 mg PO BID 06/21/15 Gabapentin 100 mg PO BID 07/12/17 Warfarin Sodium 5 mg PO 07/18/17 PE: Comfortable, NAD rest of PE per resident's note ASSESSMENT AND PLAN: Patient is a 87 y/o lady with h/o CHF, HTN, CAD, PCI, s/p Pacemaker , A fib, DM , hypothyroidism, CKD on HD previously who presented to ED. with SOB and melena. # s/p Acute GI bleed ; Melena: nO FURTHER BLEED, ON COUMADIN CONTNUE INR is therapeutic today ,INR is 2.0 today s/p EGD was not able to pass the GE junction as per ,and colonoscopy was unremarkable ;As per to resume AC if SOB is negative , recommended high fiber diet. # H/O A fib: cont BB, on Coumadin with INR of 1.5-->2.06 , will discharge patient home, follow up with PMD by Sunday to recheck INR, will discharge the patient on 4mg coumadin since presented with INR of 6.0 , follow the same home schedule. Stay away from dark leafy greens. # Acute on chronic Systolic heart failure . BP improved , continue Lasix, losartan , continue Lopressor 50mg po bid , pre-post ambulatory pulse ox is 95 % # Hx of HTN: but was found to be Hypotension in the hospital, back to her baseline , continue Losartan since her creatinine back to her baseline, Cont ImDUR 30mg. # CECILIA o n CKD :back to her baseline continue losartan AND LASIX follow with PMD by Sunday to check the INR level. Discharge on Coumadin 4mg po at 6pm daily continue home meds Protonix added due to her GI bleed and patient is on BID dosing , needs to follow up with in 2 weeks for further dose adjustment of protonix to once a day. Discharge patient home.
[2017-07-19] MEDS: ISOSORBIDE MONONITRATE 30 MG TAB.SR.24H (FP) PO SCH (09:59)
[2017-07-19] MEDS: PANTOPRAZOLE 40 MG TABLET (FP) PO SCH (09:59)
[2017-07-19] MEDS: METOPROLOL TARTRATE 50 MG TABLET (FP) PO SCH (09:59)
--- NOTE | 2017-07-19 10:47 | DS ---
Physical Exam: SUBJECTIVE: Patient seen and examined. Sob improved, denies CP, abdominal pain, fever, chills. Tolerating PO intake. Voiding well. OBJECTIVE: Vital Signs Period Temp Pulse Resp BP Sys/Maciel Pulse Ox Last 24 Hr 97.3 F-98.7 F 80-81 18-23 127-146/60-72 95-98 PHYSICAL EXAM GENERAL: sitting comfortable in chair, nad, aaox3 HEENT: moist mucous membranes LUNGS: CTAB HEART: rrr, normal s1/s2, no m/r/g ABDOMEN: Soft, ntnd, normoactive bowel sounds EXTREMITIES: 2+ DP, wwp, no edema NEUROLOGICAL: CN II-XII grossly intact. Normal speech LABS CBC, BMP 07/19/17 06:30 07/19/17 06:30 Hepatic Panel Total Bilirubin 0.5 mg/dL (0.2-1.0) D 07/19/17 06:30 AST 14 U/L (15-37) L 07/19/17 06:30 ALT 11 U/L (12-78) L 07/19/17 06:30 Alkaline Phosphatase 75 U/L (45-117) 07/19/17 06:30 Albumin 2.8 g/dl (3.4-5.0) L 07/19/17 06:30 INR, PTT INR 2.04 (0.82-1.09) H D 07/19/17 06:30 HOSPITAL COURSE: Date of Admission:07/12/17 Date of Discharge: 07/19/17 Pre-admission Course: 87yo F w/ persistent A-fib on coumadin, hypothyroidism, angina and CAD s/p PCI and stent, combined CHF s/p biventricular pacemaker, HLD, HTN, asthma, ESRD previously on HD brought in by her son due to worsening shortness of breath since last night. The symptom came on last night when patient was in bed around 8pm when she suddenly felt short of breath. She lives on second floor with ~12 steps of stairs and she uses wheelchair and walker to ambulate outside and inside of her house respectively. Patient endorses dyspnea on exertion at baseline but the symptom has been more acute and worse in that she now has to use 2 instead of 1 pillow to sleep at night and wake up gasping for air more frequently in the last few days. She also noted worsening appetite and 3 episodes of dark stool while on her usual coumadin 5mg Mon-Fri, 2.5mg on Sat, and nothing on Sun. She denies chest pain, palpitation, fever, chills, n/v, weight gain, urinary symptom. Subsequent Hospital Course: Patient was placed on continuous telemetry monitoring and cardiology was consulted. She was rate controlled on her home medicatons. She was found to have acute on chronic systolic heart failure. Her home medications were continued and she was given IV lasix. Her sob, LE edema and bibasilar rales improved after diuresis. By discharge, her pre and post ambulatory pSaO2 was 96 % to 95% on RA after walking 65 feet using rolling walker. On admission, she was found to have guaiac+ stool in the setting of supratherapeutic INR of 6. Her Coumadin was held and she was given Vitamin K. GI was consulted. She was started on Protonix. Colonoscopy was performed that was normal with only mild diverticulitis and internal hemorrhoids identified ( no biopsies taked). EGD was also performed, but the scope was unable to pass the GE junction. Barium swallow test was then performed, which found no defects. Patient's H&H was stable, repeat stool occult was negative, and she had no further s/s of active bleeds. Consults: GI - Dr. Duncan Cardiology - Dr. Cannon FIELD NURSE CASE MANAGER - Karey Lara Imaging: Modified Barium Swallow 07/17/17: Thin and thick liquid, as well as puree and solid food were administered. There is a strong swallowing mechanism demonstrated with no evidence of aspiration on any of the ingested substances. Limited evaluation of the esophagus demonstrates a prominent cricopharyngeus muscle without evidence of obstruction. There is dysmotility and mild reflux noted within the distal esophagus with tapered narrowing at the gastroesophageal junction. The possibility of a mild stricture in this location cannot be excluded. The esophagus did empty, however. Endoscopic correlation is recommended. IMPRESSION: 1. No evidence of aspiration. 2. Esophageal dysmotility with tapered GE junction. Please see above discussion. MODIFIED BARIUM SWALLOW was performed upright, lateral with Dr. Walters using puree, thick and thin liquid via cup and straw and a cookie. ORAL STAGE: Good mastication, bolus formation and transfer . PHARYNGEAL STAGE: The swallow reflex was fairly brisk with no aspiration or penetration demonstrated on any consistency. Epiglottic inversion was slightly reduced, with mild stasis in the vallecula but functional. There was a mildly prominent cricopharyngeal bar that was judged to be within normal limits and nonobstructive. ESOPHAGEAL STAGE: Limited study. Delayed esophageal emptying with mild dysmotility. Refer to radiology report IMPRESSION: Grossly normal oral pharyngeal swallowing function. Mildly reduced epiglottic inversion. Mild cricopharyngeal bar which was unobstructive. Delayed esophageal emptying. Risk of retrograde aspiration if patient reclines with full esophagus RECOMMENDATIONS: Soft regular diet and thin liquid. Patient should eat several small meals a day, and allow time for the esophagus to empty. She should not reclining for an hour after meals and within 2 to 3 hours at bedtime. Carbonation may assist in esophageal emptying. CXR 07/12/17: Comparison study December 22, 2014. Left-sided pacemaker with 2 intact leads. Bilateral apical pleural thickening. No evidence of widening of the superior mediastinum. Calcified aortic arch, uncoiled thoracic aorta. Prominent cardiac silhouette. The pulmonary vasculature is normal. No pulmonary consolidations are seen. No evidence of blunting of the costophrenic angles, effacement of the diaphragms. No pneumothorax, or large pleural effusion is seen. Demineralized osseous structures. Intact visualized osseous structures. Impression. IMPRESSION: No evidence of pneumonia, atelectasis, CHF. No pleural effusion, or pneumothorax is seen. Minutes to complete discharge: 45 Discharge Summary Reason For Visit: DYSPNEA,BLOOD IN STOOL,INCREASED INR Current Active Problems Blood in stool (Acute) Dysphagia (Acute) Heme positive stool (Acute) Shortness of breath (Acute) Condition: Stable - Instructions Diet, Activity, Other Instructions: You were admitted to the hospital for shortness of breath and blood in the stool. Your colonoscopy was normal. RECOMMENDATIONS: -You may resume your regular daily activities and a high fiber, low salt diet. Try to have a consistent diet and avoid foods with high Vitamin K, such as dark leafy greens, which can thin out your blood and increase your risk of bleeding. -Avoid NSAID medications, such as Ibuprofen, Advil, and Alleve, which can affect your stomach. Avoid aspirin as well MEDICATIONS: Continue taking your regular home medications, with the following change: (1) Your Coumadin was decreased to 4mg. Take 4mg Sunday to Sunday, 2.5mg Coumadin on Sunday, and nothing on Sunday. Make an appointment with Dr. Johnson for an INR check on Wednesday 07/25. (2) Take Protonix 40mg two times per day until you see Dr. Duncan. FOLLOW-UPS: -Make an appointment on Wednesday 07/25 to check your INR at Dr. Gee's office. -Make an appointment within [address] Duncan (Gastroenterology) to follow-up after EGD/Colonoscopy and discuss whether you should continue taking Protonix. -Make an appointment to see your Mathematics Lecturer, Dr. Cannon, within 2 weeks to check your ICD. Please return to the Emergency Department if you have worsening shortness of breath, notice black or bloody stools, have chest pain, signs of bleeding or any new or concerning symptoms. Referrals: Adriana Johnson MD [Primary Care Provider] - Matheus Duncan MD [Staff Physician] - Clarence Cannon MD [Staff Physician] - Disposition: HOME - Home Medications Comprehensive Discharge Medication List: Ambulatory Orders Acetaminophen [Tylenol] 650 mg PO PRN PRN 06/21/15 Furosemide [Lasix -] 40 mg PO DAILY 06/21/15 Isosorbide Mononitrate 15 mg PO DAILY 06/21/15 Levothyroxine [Synthroid -] 100 mcg PO DAILY 06/21/15 Losartan Potassium 25 mg PO DAILY 06/21/15 Metoprolol Tartrate 50 mg PO BID 06/21/15 Gabapentin 100 mg PO BID 07/12/17 Pantoprazole Sodium [Protonix -] 40 mg PO BID #60 tablet.ec 07/19/17 Warfarin Na [Coumadin -] 4 mg PO DAILY@1800 #30 tablet 07/19/17 This patient is new to me today: No Emergency Visit: No Critical Care patient: No - Discharge Referral Referred to [facility] No
--- NOTE | 2017-07-19 11:07 | MSN ---
Progress Note (SOAP) - Subjective Chief Complaint: SOB, Melena History of Present Illness: Patient slept well overnight. Feeling much better since her admission. She is breathing better nd denies any SOB. Appetite intact, denies any nausea, vomiting , indigestion. Denies any urinary sx's. Denies any fevers, chills, chest pain. Walked 65 feet with PT yesterday. Excited to go home today. No acute events overnight as per nursing. - Current Medications Current Medications: Active Medications Acetaminophen (Tylenol -) 650 mg PO Q6H PRN PRN Reason: FEVER OR PAIN Last Admin: 07/18/17 22:04 Dose: 650 mg Isosorbide Mononitrate (Imdur -) 15 mg PO DAILY [facility] Last Admin: 07/19/17 09:59 Dose: 15 mg Levothyroxine Sodium (Synthroid -) 100 mcg PO DAILY@0700 [facility] Last Admin: 07/19/17 06:13 Dose: 100 mcg Metoprolol Tartrate (Lopressor -) 50 mg PO BID [facility] Last Admin: 07/19/17 09:59 Dose: 50 mg Pantoprazole Sodium (Protonix -) 40 mg PO BID [facility] Last Admin: 07/19/17 09:59 Dose: 40 mg Warfarin Sodium (Coumadin -) 4 mg PO DAILY@1800 [facility] - Objective Vital Signs: Vital Signs Temperature 97.4 F L 07/19/17 09:48 Pulse Rate 81 07/19/17 09:48 Respiratory Rate 18 07/19/17 09:48 Blood Pressure 138/70 07/19/17 09:52 O2 Sat by Pulse Oximetry (%) 98 07/19/17 09:00 Constitutional: Yes: No Distress, Calm Cardiovascular: Yes: Regular Rate and Rhythm, S1, S2 Respiratory: Yes: CTA Bilaterally, On Nasal O2 (1L). No: Rales, Rhonchi, Wheezes Gastrointestinal: Yes: Normal Bowel Sounds, Soft. No: Tenderness Peripheral Pulses: Left Radial: 2+, Right Radial: 2+, Left Doralis Pedis: 1+, Right Dorsalis Pedis: 1+ Edema: No Neurological: Yes: Alert, Oriented Labs Lab Results: CBC, BMP 07/19/17 06:30 07/19/17 06:30 Problem List - Problems (1) CHF (congestive heart failure) Code(s): I50.9 - HEART FAILURE, UNSPECIFIED Qualifiers: Congestive heart failure type: systolic Congestive heart failure chronicity : acute on chronic Qualified Code(s): I50.23 - Acute on chronic systolic ( congestive) heart failure Assessment/Plan 87 y/o female w/ PMHXx of AFib (On Comadin at home), CHF s/p Biventricular Pacemaker, HTN, HLD, Hypothyroidism, CKD and Angina and CAD s/p PCI and Stent placement was admitted on 07/12 to telemetry inpatient service due to Acute on Chronic Systolic Heart failure and Upper GI Bleed. 1. Acute of Chronic Systolic Heart Failure - SOB has improved with 1-2L on NC and bed head height elevated 30-45 degrees - Lower extremity Edema has resolved - Lasix 40mg IV BID held until Cr function returned to baseline; Cr improved from 1.9 to 1.8 - Continue Metoprolol Tartrate 50 mg PO BID - Continue Isosorbide Mononitrate 15 mg PO Daily - Daily Weights, Strict I&O's - Tele monitoring - Pre- and Post-exercise Pulse Ox were 95% 2. Melana likely due to Upper GI Bleed in the setting of Coumadin use - INR today was 2.04; Patient will need to follow up with PCP within 1 week to check INR - Continue Protonix gtt 3. History of Atrial Fibrillation - Continue Metoprolol Tartrate 50 mg PO BID - Reduce Coumadin from 5 to 4mg 4. HTN - Continue Metoprolol Tartrate 50 mg PO BID - Continue Isosorbide Mononitrate 15 mg PO Daily - Restart Losartan potassium 25 mg PO Daily when she returns home as Cr improved to 1.8 today 5. CECILIA on CKD 2/2 Volume Depletion - BUN has improved from 38 to 33, Cr has improved from 1.9 to 1.8 - Restart Losartan potassium 25 mg PO Daily when she returns home 6. Hyperkalemia - Resolved; K+ today was 3.9 7. DVT PPx - SCDs Dispo: D/C home today
--- NOTE | 2017-07-19 12:03 | PN ---
Progress Note, Physician History of Present Illness: No events overnight. comfortable. No melena, hematochezia, dyspepsia - Current Medication List Current Medications: Active Medications Acetaminophen (Tylenol -) 650 mg PO Q6H PRN PRN Reason: FEVER OR PAIN Last Admin: 07/18/17 22:04 Dose: 650 mg Isosorbide Mononitrate (Imdur -) 15 mg PO DAILY [facility] Last Admin: 07/19/17 09:59 Dose: 15 mg Levothyroxine Sodium (Synthroid -) 100 mcg PO DAILY@0700 [facility] Last Admin: 07/19/17 06:13 Dose: 100 mcg Metoprolol Tartrate (Lopressor -) 50 mg PO BID [facility] Last Admin: 07/19/17 09:59 Dose: 50 mg Pantoprazole Sodium (Protonix -) 40 mg PO BID [facility] Last Admin: 07/19/17 09:59 Dose: 40 mg Warfarin Sodium (Coumadin -) 4 mg PO DAILY@1800 [facility] - Objective Vital Signs: Vital Signs Temperature 97.4 F L 07/19/17 09:48 Pulse Rate 81 07/19/17 09:48 Respiratory Rate 18 07/19/17 09:48 Blood Pressure 138/70 07/19/17 09:52 O2 Sat by Pulse Oximetry (%) 98 07/19/17 09:00 Constitutional: Yes: Well Nourished, No Distress, Calm Eyes: Yes: Conjunctiva Clear HENT: Yes: Atraumatic Neck: Yes: Supple Gastrointestinal: Yes: Soft. No: Melena, Rectal Bleeding, Tenderness, Epigastrium Neurological: Yes: Alert, Oriented Labs: CBC, BMP 07/19/17 06:30 07/19/17 06:30 INR, PTT INR 2.04 (0.82-1.09) H D 07/19/17 06:30 Laboratory Results - last 24 hr 07/18/17 07/18/17 07/19/17 05:35 12:23 06:30 WBC 6.6 RBC 3.08 L Hgb 10.6 L Hct 32.3 L MCV 105.0 H MCH 34.6 H MCHC 32.9 RDW 13.4 Plt Count 217 MPV 7.8 Total Counted 100 Neutrophils % No Result Required. Neutrophils % (Manual) 40.8 L 64.0 D Band Neutrophils % 0.0 Lymphocytes % No Result Required. Lymphocytes % (Manual) 24.5 14.0 D Monocytes % (Manual) 18 H* 10 Eosinophils % (Manual) 11.2 H 11.0 H Basophils % (Manual) 1.0 1.0 Myelocytes % (Man) 0 Metamyelocytes 0 Hypochromia 0 Toxic Granulation 0 Dohle Bodies 0 Platelet Estimate Normal Adequate Polychromasia 0 Poikilocytosis 0 Basophilic Stippling 0 Anisocytosis 0 Microcytosis 0 Macrocytosis 0 Spherocytes 0 Sickle Cells 0 Target Cells 0 Tear Drop Cells 0 Ovalocytes 0 Stomatocytes 0 Helmet Cells 0 [place] Bodies 0 [place] Rings 0 [place] Cells 0 Acanthocytes (Spur) 0 Fragmented RBCs 0 Schistocytes 0 PT with INR 17.00 H INR 1.50 H Sodium Potassium Chloride Carbon Dioxide Anion Gap BUN Creatinine Creat Clearance w eGFR Random Glucose Calcium Total Bilirubin AST ALT Alkaline Phosphatase Total Protein Albumin 07/19/17 07/19/17 06:30 06:30 WBC RBC Hgb Hct MCV MCH MCHC RDW Plt Count MPV Total Counted Neutrophils % Neutrophils % (Manual) Band Neutrophils % Lymphocytes % Lymphocytes % (Manual) Monocytes % (Manual) Eosinophils % (Manual) Basophils % (Manual) Myelocytes % (Man) Metamyelocytes Hypochromia Toxic Granulation Dohle Bodies Platelet Estimate Polychromasia Poikilocytosis Basophilic Stippling Anisocytosis Microcytosis Macrocytosis Spherocytes Sickle Cells Target Cells Tear Drop Cells Ovalocytes Stomatocytes Helmet Cells [place] Bodies [place] Rings [place] Cells Acanthocytes (Spur) Fragmented RBCs Schistocytes PT with INR 23.10 H INR 2.04 H D Sodium 143 Potassium 3.9 Chloride 107 Carbon Dioxide 30 Anion Gap 6 L BUN 33 H Creatinine 1.8 H Creat Clearance w eGFR 26.49 Random Glucose 93 Calcium 8.3 L Total Bilirubin 0.5 D AST 14 L ALT 11 L Alkaline Phosphatase 75 Total Protein 5.5 L Albumin 2.8 L Problem List - Problems (1) CHF (congestive heart failure) Code(s): I50.9 - HEART FAILURE, UNSPECIFIED Qualifiers: Congestive heart failure type: systolic Congestive heart failure chronicity : acute on chronic Qualified Code(s): I50.23 - Acute on chronic systolic ( congestive) heart failure (2) Heme positive stool Code(s): R19.5 - OTHER FECAL ABNORMALITIES (3) Supratherapeutic INR Code(s): R79.1 - ABNORMAL COAGULATION PROFILE (4) Dysphagia Code(s): R13.10 - DYSPHAGIA, UNSPECIFIED Assessment/Plan A/C as per primary team. Monitor for melena, hematochezia, food impaction - discussed with the patient in detail PPI Low salt diet
--- NOTE | 2017-07-19 12:35 | PN ---
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 Delayed esophageal emptying with risk of retrograde aspiration. Followed by GI. Reviewed several small meals throughout the day, allowing time for the esoph to empty. Upright for at least an hour or two after meals, and no PO intake within 3 hour of bedtime. Pt reports "taking it slow" with good tolerance. REC: Several small meals throughout the day. Eat slowly. Alternate solids with liquids. Complete with liquid. Eat slowly. Give time for esophagus to empty. OOB for meals. Upright or at least an hour after meals. No PO intake w/in 2-3 hrs of bedtime. Written rec provided to pt.
--- NOTE | 2017-07-19 12:54 | PN ---
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 Walker: REC: Several small meals throughout the day. Eat slowly. Alternate solids with liquids. Complete with liquid. Eat slowly. Give time for esophagus to empty. OOB for meals. Upright or at least an hour after meals. No PO intake w/in 2-3 hrs of bedtime.
[2017-07-19 14:52] VITALS: BP 110/56; PULSE 86; TEMP 98
[2017-07-19] MEDS ORDERED: WARFARIN NA 2 MG TABLET (UD) PO SCH (18:00)
== END 2017-07-19 15:02 | disposition home or self-care (01) | DRG 813 ==
LOC: JER 05:53 → JERBED 10:34 → J4S 21:16
PROVIDERS: ADMIT Internal Medicine; ATTEND Internal Medicine
PROC: 0DJD8ZZ Inspection of Lower Intestinal Tract, Via Natural or Artificial Opening Endoscopic (ICD-10-PCS; 2017-07-17)
PROC: 0DJ08ZZ Inspection of Upper Intestinal Tract, Via Natural or Artificial Opening Endoscopic (ICD-10-PCS; principal; 2017-07-17 08:00)
DX: D68.32 Hemorrhagic disorder due to extrinsic circulating anticoagulants (principal); N18.6 End stage renal disease; I50.23 Acute on chronic systolic (congestive) heart failure; N17.9 Acute kidney failure, unspecified; I13.2 Hypertensive heart and chronic kidney disease with heart failure and with stage 5 chronic kidney disease, or end stage renal disease; I48.2 Chronic atrial fibrillation; E03.9 Hypothyroidism, unspecified; Z79.01 Long term (current) use of anticoagulants; Z99.2 Dependence on renal dialysis; Z95.0 Presence of cardiac pacemaker; E78.5 Hyperlipidemia, unspecified; I25.118 Atherosclerotic heart disease of native coronary artery with other forms of angina pectoris; Z95.5 Presence of coronary angioplasty implant and graft; Z87.891 Personal history of nicotine dependence; K57.30 Diverticulosis of large intestine without perforation or abscess without bleeding; K64.8 Other hemorrhoids; J45.909 Unspecified asthma, uncomplicated; E87.5 Hyperkalemia; F41.9 Anxiety disorder, unspecified; F32.9 Major depressive disorder, single episode, unspecified; I36.1 Nonrheumatic tricuspid (valve) insufficiency; I35.1 Nonrheumatic aortic (valve) insufficiency; I27.20 Pulmonary hypertension, unspecified; D64.9 Anemia, unspecified; E87.6 Hypokalemia; R13.10 Dysphagia, unspecified; E86.9 Volume depletion, unspecified
CPT/HCPCS: 36415; 71010-TC; 74230-TC; 80048; 80053; 82272; 82550; 83735; 83880; 84100; 84132; 84443; 84484; 85025; 85027; 85610; 85730; 90688; 92611-GN; 93005; 93010; 93306-TC; 94761; 97116-GP; 97161-GP; 99284-25; G0008